=== PATIENT | female | born 1960 | race Caucasian/White ===

== ENCOUNTER 2023-02-05 15:16 | Inpatient (IN) ==
--- NOTE | 2023-02-05 15:31 | Emergency Department Note ---
Impression & Plan Pneumonia, Acute alteration in mental status, Hypoxia, Influenza, Hypomagnesemia, Acute hyponatremia ED Provider Note NAME: GURINDER GARCIA AGE: 62 SEX: F : 1960 ARRIVES VIA: Ambulance INFORMANT: Patient, EMS ED PROVIDER(S): Dami Llaons DO CHIEF COMPLAINT: Abdominal pain HPI: The patient is a 62-year-old female who presented to the emergency department from the [facility] for an evaluation of multiple complaints. Reportedly the patient has been having abdominal pain for the last 2 to 3 days. We did receive a phone call from the [facility] where the provider at that facility alerted us that they were sending the patient. The patient is not able to give much history. She appears agitated and confused. The patient is asking for "R[place]". When directed she does admit to having right lower quadrant pain. She denies having any black or tarry bowel movements. She denies having any chest pain or difficulty breathing. She was noted to have hypoxia by the nursing staff upon arrival to the emergency department. The patient was seen in our facility recently because of a fall. ROS: See above HPI for pertinent positives & negatives. A total of 10 systems reviewed and were otherwise negative. PAST MEDICAL HISTORY: See Below PAST SURGICAL HISTORY: See Below FAMILY HISTORY: See Below SOCIAL HISTORY: See Below HOME MEDICATIONS: See Below ALLERGIES: See Below VITALS: See Below PHYSICAL EXAMINATION: GENERAL: The patient is awake and alert. She does not appear to be uncomfortable. She follows commands intermittently and seems somewhat confused. EYES: The conjunctivae are clear. The pupils are round and reactive. EARS, NOSE, MOUTH AND THROAT: The nose is without any evidence of any deformity. NECK: The neck is nontender and supple. RESPIRATORY: Diminished breath sounds are noted throughout. There were rales at the right base. CARDIOVASCULAR: Regular rate and rhythm noted there no murmurs rubs or gallops normal S1 normal S2. GASTROINTESTINAL: The abdomen is soft and nondistended. There is right lower quadrant tenderness palpation but no guarding rigidity. MUSCULOSKELETAL/EXTREMITIES: There is no evidence of gross deformity full range of motion is noted in the hips and shoulders. SKIN: Skin is pale. Skin is cool and dry. There is no edema. NEUROLOGIC: Patient is awake alert and oriented to person and but not place or time. Strength was symmetric but diminished bilaterally. MEDICAL DECISION MAKING: The patient is a 62-year-old female who presented to the emergency department for an evaluation of altered mental status. The patient was sent from the [facility] where she is currently an inpatient for mental health treatment. The patient started having abdominal pain through the course of the day. Review of her records shows that she was here recently after a fall as well. The patient had abnormal lung sounds. She was found have signs of pneumonia on chest x-ray. She was treated empirically with IV antibiotics and given IV fluids. Given her altered mental status she was treated as sepsis. I discussed patient's laboratory and radiographic studies with her. I [facility] They have agreed to evaluate the patient in the emergency department for further management and disposition. Triage Nursing notes reviewed. Prior medical records reviewed Vital Signs: reviewed and remarkable for hypoxia and tachycardia. Differential diagnosis: Infection, hypoglycemia, electrolyte abnormalities, overdose, toxicologic, cardiac sources, intracerebral event, neurologic, trauma, as well as other pathologies. ER treatment provided: See below Diagnostics interpreted by me: ECG: EKG was obtained in the emergency department. My interpretation is normal sinus rhythm at 89 bpm. There is no ectopy. There is no acute ST segment abnormalities noted. No previous tracing was available. Cardiac Monitoring: An order was placed for continuous cardiac monitoring. The monitor shows a rate of 93 bpm with sinus rhythm. Laboratory studies: As stated above and show below. Imaging studies: See below. Radiographic imaging was reviewed by myself Consultation(s): I discussed this case with Zelda who is [facility] for [facility]. ED COURSE: Procedures: none Critical Care: I have personally spent greater than 45 minutes of critical care time in the direct management of this patient. This includes bedside care, interpretation of diagnostic studies, and testing, discussion with consultants, patient, and family members, and other required patient management activities. This 45 minutes is in excess of all separately billable procedures. Past Med/Surg History Medical History (Updated 02/05/23 @ 20:58 by Dami Llanos DO) COPD (chronic obstructive pulmonary disease) TIA (transient ischemic attack) SONI (obstructive sleep apnea) CAD (coronary artery disease) Hx of insulin dependent diabetes mellitus Borderline personality disorder Bipolar disorder Chronic GERD Hypertension Hypothyroid CVA (cerebral vascular accident) High cholesterol Social History Smoking Status: Unknown if ever smoked Preferred Language: Turkish Feels Safe at Home: No Allergies Allergies Allergy/AdvReac Type Severity Reaction Status Date / Time albuterol Allergy Unknown Unknown Verified 02/05/23 17:02 Corticosteroids Allergy Unknown Unknown Verified 02/05/23 17:02 (Glucocorticoids) escitalopram Allergy Unknown Unknown Verified 02/05/23 17:02 ketorolac Allergy Unknown Unknown Verified 02/05/23 17:02 mushroom Allergy Unknown Unknown Verified 02/05/23 17:02 NSAIDS (Non-Steroidal Allergy Unknown Unknown Verified 02/05/23 17:02 Anti-Inflamma prednisolone Allergy Unknown Unknown Verified 02/05/23 17:02 codeine AdvReac Unknown Nausea Verified 02/05/23 17:02 Fish Containing Products AdvReac Unknown edema Verified 02/05/23 17:02 prednisone AdvReac Unknown Unknown Verified 02/05/23 17:02 Home Meds Home Medications Medication Instructions Recorded Confirmed amlodipine 10 mg tablet 10 mg PO DAILY 02/05/23 02/05/23 atorvastatin 40 mg tablet 40 mg PO HS 02/05/23 02/05/23 clopidogrel 75 mg tablet 75 mg PO DAILY 02/05/23 02/05/23 diazepam 2 mg tablet 2 mg PO BID PRN bipolar 02/05/23 02/05/23 duloxetine 30 mg capsule,delayed 30 mg PO DAILY 02/05/23 02/05/23 release insulin aspart U-100 100 unit/mL 18 unit subcut AC 02/05/23 02/05/23 subcutaneous cartridge (Novolog PenFill U-100 Insulin aspart) insulin aspart U-100 100 unit/mL 1 sliding scale dose subcut 02/05/23 02/05/23 subcutaneous solution (Novolog USEASDIRECTD U-100 Insulin aspart) insulin detemir U-100 100 unit/mL 25 unit subcut DAILY 02/05/23 02/05/23 subcutaneous solution labetalol 100 mg tablet 100 mg PO BID 02/05/23 02/05/23 levothyroxine 100 mcg tablet 100 mcg PO DAILY 02/05/23 02/05/23 levothyroxine 25 mcg tablet 25 mcg PO DAILY 02/05/23 02/05/23 lisinopril 10 mg tablet 10 mg PO DAILY 02/05/23 02/05/23 metformin 500 mg tablet 500 mg PO BID 02/05/23 02/05/23 nitrofurantoin macrocrystal 100 mg 100 mg PO BID 02/05/23 02/05/23 capsule pantoprazole 40 mg tablet,delayed 40 mg PO DAILY 02/05/23 02/05/23 release quetiapine 25 mg tablet 25 mg PO BID 02/05/23 02/05/23 trazodone 100 mg tablet 100 mg PO HS PRN Insomnia 02/05/23 02/05/23 trazodone 50 mg tablet 25 mg PO HS PRN Insomnia 02/05/23 02/05/23 Results & Data (ED) Vital Signs Vital Signs - 24 hr 02/05/23 15:19 02/05/23 15:19 02/05/23 15:20 Temperature 36.9 C Temperature Source Oral Pulse Rate 91 H 89 Pulse Rate [Right Finger] Pulse Rate from SpO2 Sensor Pulse Rhythm Regular Pulse Strength Normal Respiratory Rate 20 20 Respiratory Effort / Characteristics Non-Labored Spontaneous Respiratory Depth Normal Respiratory Pattern Regular Blood Pressure 113/72 Blood Pressure [Right Arm] Blood Pressure Mean 85 Blood Pressure Mean [Right Arm] Blood Pressure Position [Right Arm] Pulse Oximetry 86 L 86 L 94 Oxygen Delivery Method Room Air Room Air Nasal Cannula Oxygen Flow Rate 2 Sepsis Recent Fever Within 48 Hours No Sepsis New/Unexplained Change in Mental Status Yes Sepsis Action Taken by Nursing No Action Required 02/05/23 15:38 02/05/23 15:38 02/05/23 16:00 Temperature Temperature Source Pulse Rate 92 H 92 H 92 H Pulse Rate [Right Finger] Pulse Rate from SpO2 Sensor Pulse Rhythm Pulse Strength Respiratory Rate 20 19 Respiratory Effort / Characteristics Respiratory Depth Respiratory Pattern Blood Pressure Blood Pressure [Right Arm] Blood Pressure Mean Blood Pressure Mean [Right Arm] Blood Pressure Position [Right Arm] Pulse Oximetry Oxygen Delivery Method Oxygen Flow Rate Sepsis Recent Fever Within 48 Hours Sepsis New/Unexplained Change in Mental Status Sepsis Action Taken by Nursing 02/05/23 16:30 02/05/23 16:47 02/05/23 16:47 Temperature Temperature Source Pulse Rate 88 90 Pulse Rate [Right Finger] Pulse Rate from SpO2 Sensor 88 90 Pulse Rhythm Pulse Strength Respiratory Rate 22 22 Respiratory Effort / Characteristics Respiratory Depth Respiratory Pattern Blood Pressure 142/108 H Blood Pressure [Right Arm] Blood Pressure Mean 121 Blood Pressure Mean [Right Arm] Blood Pressure Position [Right Arm] Pulse Oximetry 91 91 Oxygen Delivery Method Oxygen Flow Rate Sepsis Recent Fever Within 48 Hours Sepsis New/Unexplained Change in Mental Status Sepsis Action Taken by Nursing 02/05/23 16:50 02/05/23 17:19 02/05/23 17:19 Temperature Temperature Source Pulse Rate 90 89 Pulse Rate [Right Finger] Pulse Rate from SpO2 Sensor 91 H Pulse Rhythm Pulse Strength Respiratory Rate 21 23 Respiratory Effort / Characteristics Respiratory Depth Respiratory Pattern Blood Pressure 146/81 H Blood Pressure [Right Arm] Blood Pressure Mean 102 Blood Pressure Mean [Right Arm] Blood Pressure Position [Right Arm] Pulse Oximetry 100 Oxygen Delivery Method Oxygen Flow Rate Sepsis Recent Fever Within 48 Hours Sepsis New/Unexplained Change in Mental Status Sepsis Action Taken by Nursing 02/05/23 17:20 02/05/23 17:30 02/05/23 17:31 Temperature Temperature Source Pulse Rate 86 88 Pulse Rate [Right Finger] Pulse Rate from SpO2 Sensor Pulse Rhythm Pulse Strength Respiratory Rate 31 H 29 H Respiratory Effort / Characteristics Respiratory Depth Respiratory Pattern Blood Pressure 152/92 H Blood Pressure [Right Arm] Blood Pressure Mean 119 Blood Pressure Mean [Right Arm] Blood Pressure Position [Right Arm] Pulse Oximetry Oxygen Delivery Method Oxygen Flow Rate Sepsis Recent Fever Within 48 Hours Sepsis New/Unexplained Change in Mental Status Sepsis Action Taken by Nursing 02/05/23 17:31 02/05/23 17:40 02/05/23 17:41 Temperature Temperature Source Pulse Rate 88 86 Pulse Rate [Right Finger] 88 Pulse Rate from SpO2 Sensor Pulse Rhythm Pulse Strength Respiratory Rate 31 H 29 H 20 Respiratory Effort / Characteristics Non-Labored Respiratory Depth Normal Respiratory Pattern Blood Pressure Blood Pressure [Right Arm] 152/92 H Blood Pressure Mean Blood Pressure Mean [Right Arm] 112 Blood Pressure Position [Right Arm] Pulse Oximetry 94 Oxygen Delivery Method Nasal Cannula Oxygen Flow Rate 2 Sepsis Recent Fever Within 48 Hours Sepsis New/Unexplained Change in Mental Status Sepsis Action Taken by Nursing 02/05/23 17:50 02/05/23 18:00 02/05/23 18:00 Temperature Temperature Source Pulse Rate 87 87 Pulse Rate [Right Finger] Pulse Rate from SpO2 Sensor 87 Pulse Rhythm Pulse Strength Respiratory Rate 19 27 H Respiratory Effort / Characteristics Respiratory Depth Respiratory Pattern Blood Pressure 149/93 H Blood Pressure [Right Arm] Blood Pressure Mean 123 Blood Pressure Mean [Right Arm] Blood Pressure Position [Right Arm] Pulse Oximetry Oxygen Delivery Method Oxygen Flow Rate Sepsis Recent Fever Within 48 Hours Sepsis New/Unexplained Change in Mental Status Sepsis Action Taken by Nursing 02/05/23 18:10 02/05/23 18:18 02/05/23 18:20 Temperature Temperature Source Pulse Rate 86 86 Pulse Rate [Right Finger] 86 Pulse Rate from SpO2 Sensor 86 86 Pulse Rhythm Pulse Strength Respiratory Rate 33 H 20 16 Respiratory Effort / Characteristics Non-Labored Respiratory Depth Normal Respiratory Pattern Blood Pressure Blood Pressure [Right Arm] 149/93 H Blood Pressure Mean Blood Pressure Mean [Right Arm] 111 Blood Pressure Position [Right Arm] Pulse Oximetry 91 94 Oxygen Delivery Method Nasal Cannula Oxygen Flow Rate 2 Sepsis Recent Fever Within 48 Hours Sepsis New/Unexplained Change in Mental Status Sepsis Action Taken by Nursing 02/05/23 18:30 02/05/23 18:30 02/05/23 18:40 Temperature Temperature Source Pulse Rate 85 86 Pulse Rate [Right Finger] Pulse Rate from SpO2 Sensor 85 85 Pulse Rhythm Pulse Strength Respiratory Rate 29 H 33 H Respiratory Effort / Characteristics Respiratory Depth Respiratory Pattern Blood Pressure 149/83 H Blood Pressure [Right Arm] Blood Pressure Mean 96 Blood Pressure Mean [Right Arm] Blood Pressure Position [Right Arm] Pulse Oximetry 93 Oxygen Delivery Method Oxygen Flow Rate Sepsis Recent Fever Within 48 Hours Sepsis New/Unexplained Change in Mental Status Sepsis Action Taken by Nursing 02/05/23 18:50 02/05/23 19:00 02/05/23 19:00 Temperature Temperature Source Pulse Rate 85 85 Pulse Rate [Right Finger] Pulse Rate from SpO2 Sensor 85 90 Pulse Rhythm Pulse Strength Respiratory Rate 23 37 H Respiratory Effort / Characteristics Respiratory Depth Respiratory Pattern Blood Pressure 134/91 Blood Pressure [Right Arm] Blood Pressure Mean 100 Blood Pressure Mean [Right Arm] Blood Pressure Position [Right Arm] Pulse Oximetry 90 93 Oxygen Delivery Method Oxygen Flow Rate Sepsis Recent Fever Within 48 Hours Sepsis New/Unexplained Change in Mental Status Sepsis Action Taken by Nursing 02/05/23 19:10 02/05/23 19:15 02/05/23 19:20 Temperature Temperature Source Pulse Rate 83 82 Pulse Rate [Right Finger] 85 Pulse Rate from SpO2 Sensor 83 86 Pulse Rhythm Pulse Strength Respiratory Rate 32 H 18 27 H Respiratory Effort / Characteristics Non-Labored Spontaneous Respiratory Depth Normal Respiratory Pattern Regular Blood Pressure Blood Pressure [Right Arm] 134/91 Blood Pressure Mean Blood Pressure Mean [Right Arm] 105 Blood Pressure Position [Right Arm] Lying Pulse Oximetry 90 94 90 Oxygen Delivery Method Nasal Cannula Oxygen Flow Rate 2 Sepsis Recent Fever Within 48 Hours Sepsis New/Unexplained Change in Mental Status Sepsis Action Taken by Nursing 02/05/23 19:30 02/05/23 19:31 02/05/23 19:31 Temperature Temperature Source Pulse Rate 87 88 Pulse Rate [Right Finger] Pulse Rate from SpO2 Sensor 84 88 Pulse Rhythm Pulse Strength Respiratory Rate 27 H 34 H Respiratory Effort / Characteristics Respiratory Depth Respiratory Pattern Blood Pressure 130/107 H Blood Pressure [Right Arm] Blood Pressure Mean 119 Blood Pressure Mean [Right Arm] Blood Pressure Position [Right Arm] Pulse Oximetry 91 Oxygen Delivery Method Nasal Cannula Oxygen Flow Rate 3 Sepsis Recent Fever Within 48 Hours Sepsis New/Unexplained Change in Mental Status Sepsis Action Taken by Nursing 02/05/23 19:40 02/05/23 19:47 02/05/23 19:50 Temperature Temperature Source Pulse Rate 88 89 87 Pulse Rate [Right Finger] Pulse Rate from SpO2 Sensor 87 88 Pulse Rhythm Pulse Strength Respiratory Rate 29 H 24 Respiratory Effort / Characteristics Respiratory Depth Respiratory Pattern Blood Pressure Blood Pressure [Right Arm] Blood Pressure Mean Blood Pressure Mean [Right Arm] Blood Pressure Position [Right Arm] Pulse Oximetry Oxygen Delivery Method Oxygen Flow Rate Sepsis Recent Fever Within 48 Hours Sepsis New/Unexplained Change in Mental Status Sepsis Action Taken by Nursing 02/05/23 20:00 02/05/23 20:10 02/05/23 20:14 Temperature Temperature Source Pulse Rate 90 91 H Pulse Rate [Right Finger] Pulse Rate from SpO2 Sensor 91 H 91 H Pulse Rhythm Pulse Strength Respiratory Rate 23 25 H Respiratory Effort / Characteristics Respiratory Depth Respiratory Pattern Blood Pressure 107/61 Blood Pressure [Right Arm] Blood Pressure Mean 74 Blood Pressure Mean [Right Arm] Blood Pressure Position [Right Arm] Pulse Oximetry Oxygen Delivery Method Oxygen Flow Rate Sepsis Recent Fever Within 48 Hours Sepsis New/Unexplained Change in Mental Status Sepsis Action Taken by Nursing 02/05/23 20:14 02/05/23 20:20 02/05/23 20:30 Temperature Temperature Source Pulse Rate 91 H 92 H 93 H Pulse Rate [Right Finger] Pulse Rate from SpO2 Sensor 92 H 92 H Pulse Rhythm Pulse Strength Respiratory Rate 31 H 34 H 25 H Respiratory Effort / Characteristics Respiratory Depth Respiratory Pattern Blood Pressure Blood Pressure [Right Arm] Blood Pressure Mean Blood Pressure Mean [Right Arm] Blood Pressure Position [Right Arm] Pulse Oximetry 93 Oxygen Delivery Method Oxygen Flow Rate Sepsis Recent Fever Within 48 Hours Sepsis New/Unexplained Change in Mental Status Sepsis Action Taken by Nursing 02/05/23 20:40 Temperature Temperature Source Pulse Rate 93 H Pulse Rate [Right Finger] Pulse Rate from SpO2 Sensor 93 H Pulse Rhythm Pulse Strength Respiratory Rate 29 H Respiratory Effort / Characteristics Respiratory Depth Respiratory Pattern Blood Pressure Blood Pressure [Right Arm] Blood Pressure Mean Blood Pressure Mean [Right Arm] Blood Pressure Position [Right Arm] Pulse Oximetry 94 Oxygen Delivery Method Nasal Cannula Oxygen Flow Rate 4 Sepsis Recent Fever Within 48 Hours Sepsis New/Unexplained Change in Mental Status Sepsis Action Taken by [facility] Medications Current Medication List: was personally reviewed by me Laboratory Data Attestation: I reviewed the patient's lab results. 02/05/23 15:56 02/05/23 15:56 Lab Results 02/05/23 02/05/23 02/05/23 Range/Units 15:56 15:58 16:51 WBC 19.28 H (4.8-10.8) K/ul RBC 5.20 (4.20-5.40) M/uL Hgb 12.9 (12.0-16.0) g/dl Hct 39.2 (37.0-47.0) % MCV 75.4 L (80.0-100.0) fL MCH 24.8 L (25.0-34.0) pg MCHC 32.9 (32.0-36.0) g/dL RDW Std Deviation 32.6 L (36.4-46.3) fL RDW Coeff of Roxie 11.9 (11.5-14.5) % Plt Count 331 (130-400) K/uL MPV 9.3 L (9.4-12.4) fL Immature Gran % (Auto) 3.6 % Neut % (Auto) 89.0 % Lymph % (Auto) 2.8 % Branch % (Auto) 3.4 % Eos % (Auto) 0.5 % Baso % (Auto) 0.7 % Neut # (Auto) 17.14 H (1.40-6.50) K/uL Lymph # (Auto) 0.54 L (1.20-3.40) K/uL Branch # (Auto) 0.66 H (0.11-0.59) K/uL Eos # (Auto) 0.10 (0.00-0.50) K/uL Baso # (Auto) 0.14 (0.00-0.20) K/uL Immature Gran # (Auto) 0.70 H (0.01-0.20) K/uL PT 10.6 (9.0-12.0) Seconds INR 1.0 (0.9-1.1) APTT 38 H (21-31) Seconds PTT Ratio 1.3 VBG pH 7.36 (7.36-7.41) VBG pCO2 42 (38-50) mmHg VBG pO2 23 mmHg VBG HCO3 24 mmol/L VBG O2 Saturation < 60.0 % VBG Base Excess -1.8 mEq/L Methemoglobin < 0.7 (0.0-1.5) % Sodium 128 L (136-145) mmol/L Potassium 3.7 (3.5-5.1) mmol/L Chloride 93 L (98-107) mmol/L Carbon Dioxide 22 (21-32) mmol/L Anion Gap 13 H (3-11) BUN 16 (6-23) mg/dl Creatinine 0.98 (0.6-1.2) mg/dl Est Cr Clr Drug Dosing 52.7 ml/min Est GFR ( Amer) 72.7 ml/min Est GFR (Non-Af Amer) 62.7 ml/min BUN/Creatinine Ratio 16.3 (10-20) Glucose 237 H (70-99(Fasting)) mg/dl Osmolality 287 (280-300) mOsm/kg Lactate 4.5 H* (0.4-2.0) mmol/L Calcium 9.5 (8.6-10.3) mg/dl Magnesium 1.3 L (1.7-2.4) mg/dl Total Bilirubin 0.5 (0.2-1.0) mg/dl Direct Bilirubin 0.1 (0-0.2) mg/dl AST 16 (13-39) U/L ALT 6 L (7-52) U/L Alkaline Phosphatase 71 (34-104) U/L Ammonia 20.0 (18-72) umol/L Troponin I High Sens 11.0 (0-14) pg/ml Total Protein 7.9 (6.0-8.3) gm/dl Albumin 3.9 (3.4-5.0) gm/dl Procalcitonin 21.53 H (0-0.5) ng/ml Urine Color Urine Appearance (Clear) Urine pH (4.5-7.5) Ur Specific [place] (1.000-1.030) Urine Protein (Negative) Urine Glucose (UA) (Negative) Urine Ketones (Negative) Urine Blood (Negative) Urine Nitrite (Negative) Urine Bilirubin (Negative) Urine Urobilinogen (Negative) Ur Leukocyte Esterase (Negative) Urine WBC (Auto) (0-5) /hpf Urine RBC (Auto) (0-4) /hpf U Hyaline Cast (Auto) (0-5) /lpf U Epithel Cells (Auto) (0-5) /lpf Urine Bacteria (Auto) (Negative) Urine Osmolality 507 (500-800) mOsm/kg Ur Random Sodium 29 mmol/L Adenovirus (PCR) Not Detected (NotDetected) B. pertussis DNA (PCR) Not Detected (NotDetected) B.parapertussis DNA PCR Not Detected (NotDetected) C. pneumoniae DNA (PCR) Not Detected (NotDetected) Coronavirus OC43 (PCR) Not Detected (NotDetected) Coronavirus HKU1 (PCR) Not Detected (NotDetected) Coronavirus 229E (PCR) Not Detected (NotDetected) SARS-CoV-2 (PCR) Not Detected (NotDetected) Coronavirus NL63 (PCR) Not Detected (NotDetected) Human Metapneumovir PCR Not Detected (NotDetected) Influenza A (H3) PCR DETECTED A* (NotDetected) Influenza Type B (PCR) Not Detected (NotDetected) M. pneumoniae (PCR) Not Detected (NotDetected) Parainfluenza 1 (PCR) Not Detected (NotDetected) Parainfluenza 2 (PCR) Not Detected (NotDetected) Parainfluenza 3 (PCR) Not Detected (NotDetected) Parainfluenza 4 (PCR) Not Detected (NotDetected) RSV (PCR) Not Detected (NotDetected) Entero/Rhino (PCR) Not Detected (NotDetected) 02/05/23 02/05/23 Range/Units 18:26 Unknown WBC (4.8-10.8) K/ul RBC (4.20-5.40) M/uL Hgb (12.0-16.0) g/dl Hct (37.0-47.0) % MCV (80.0-100.0) fL MCH (25.0-34.0) pg MCHC (32.0-36.0) g/dL RDW Std Deviation (36.4-46.3) fL RDW Coeff of Roxie (11.5-14.5) % Plt Count (130-400) K/uL MPV (9.4-12.4) fL Immature Gran % (Auto) % Neut % (Auto) % Lymph % (Auto) % Branch % (Auto) % Eos % (Auto) % Baso % (Auto) % Neut # (Auto) (1.40-6.50) K/uL Lymph # (Auto) (1.20-3.40) K/uL Branch # (Auto) (0.11-0.59) K/uL Eos # (Auto) (0.00-0.50) K/uL Baso # (Auto) (0.00-0.20) K/uL Immature Gran # (Auto) (0.01-0.20) K/uL PT (9.0-12.0) Seconds INR (0.9-1.1) APTT (21-31) Seconds PTT Ratio VBG pH (7.36-7.41) VBG pCO2 (38-50) mmHg VBG pO2 mmHg VBG HCO3 mmol/L VBG O2 Saturation % VBG Base Excess mEq/L Methemoglobin (0.0-1.5) % Sodium (136-145) mmol/L Potassium (3.5-5.1) mmol/L Chloride (98-107) mmol/L Carbon Dioxide (21-32) mmol/L Anion Gap (3-11) BUN (6-23) mg/dl Creatinine (0.6-1.2) mg/dl Est Cr Clr Drug Dosing ml/min Est GFR ( Amer) ml/min Est GFR (Non-Af Amer) ml/min BUN/Creatinine Ratio (10-20) Glucose (70-99(Fasting)) mg/dl Osmolality (280-300) mOsm/kg Lactate 0.6 (0.4-2.0) mmol/L Calcium (8.6-10.3) mg/dl Magnesium (1.7-2.4) mg/dl Total Bilirubin (0.2-1.0) mg/dl Direct Bilirubin (0-0.2) mg/dl AST (13-39) U/L ALT (7-52) U/L Alkaline Phosphatase (34-104) U/L Ammonia (18-72) umol/L Troponin I High Sens (0-14) pg/ml Total Protein (6.0-8.3) gm/dl Albumin (3.4-5.0) gm/dl Procalcitonin (0-0.5) ng/ml Urine Color Yellow Urine Appearance Cloudy A (Clear) Urine pH 5.0 (4.5-7.5) Ur Specific [place] 1.023 (1.000-1.030) Urine Protein 1+ H (Negative) Urine Glucose (UA) 3+ H (Negative) Urine Ketones 2+ H (Negative) Urine Blood Negative (Negative) Urine Nitrite Negative (Negative) Urine Bilirubin Negative (Negative) Urine Urobilinogen Negative (Negative) Ur Leukocyte Esterase Trace H (Negative) Urine WBC (Auto) 10-30 H (0-5) /hpf Urine RBC (Auto) 0-4 (0-4) /hpf U Hyaline Cast (Auto) 1-5 (0-5) /lpf U Epithel Cells (Auto) >30 H (0-5) /lpf Urine Bacteria (Auto) Negative (Negative) Urine Osmolality (500-800) mOsm/kg Ur Random Sodium mmol/L Adenovirus (PCR) (NotDetected) B. pertussis DNA (PCR) (NotDetected) B.parapertussis DNA PCR (NotDetected) C. pneumoniae DNA (PCR) (NotDetected) Coronavirus OC43 (PCR) (NotDetected) Coronavirus HKU1 (PCR) (NotDetected) Coronavirus 229E (PCR) (NotDetected) SARS-CoV-2 (PCR) (NotDetected) Coronavirus NL63 (PCR) (NotDetected) Human Metapneumovir PCR (NotDetected) Influenza A (H3) PCR (NotDetected) Influenza Type B (PCR) (NotDetected) M. pneumoniae (PCR) (NotDetected) Parainfluenza 1 (PCR) (NotDetected) Parainfluenza 2 (PCR) (NotDetected) Parainfluenza 3 (PCR) (NotDetected) Parainfluenza 4 (PCR) (NotDetected) RSV (PCR) (NotDetected) Entero/Rhino (PCR) (NotDetected) Administered Medications Discontinued Medications Magnesium Sulfate/Dextrose (Magnesium Sulfate / D5w) 1 gm in 100 mls @ 100 mls/hr IV Q1H BARBI Stop: 02/05/23 18:47 Last Infusion: 02/05/23 19:17 Dose: Infused Documented By: Admin: 02/05/23 18:17 Dose: 100 mls/hr Documented By: Infusion: 02/05/23 18:16 Dose: Infused Documented By: Admin: 02/05/23 17:21 Dose: 100 mls/hr Documented By: NRB Sodium Chloride (Nss) 1,000 mls @ 999 mls/hr IV .Q1H1M ONE Stop: 02/05/23 17:48 Last Infusion: 02/05/23 20:30 Dose: Infused Documented By: Admin: 02/05/23 17:21 Dose: 999 mls/hr Documented By: DARLING Cefepime HCl (Maxipime) 20 mls @ 5 mls/min IV NOW STA Stop: 02/05/23 17:12 Last Admin: 02/05/23 17:19 Dose: 5 mls/min Documented By: DARLING Vancomycin HCl 1,750 mg/ (Sodium Chloride) 535 mls @ 200 mls/hr IV NOW STA Stop: 02/05/23 19:50 Last Infusion: 02/05/23 20:31 Dose: Infused Documented By: Admin: 02/05/23 17:47 Dose: 200 mls/hr Documented By: NRB Sodium Chloride (Nss) 1,000 mls @ 999 mls/hr IV .Q1H1M ONE Stop: 02/05/23 18:27 Last Infusion: 02/05/23 20:31 Dose: Infused Documented By: Admin: 02/05/23 18:04 Dose: 999 mls/hr Documented By: DARLING Oseltamivir Phosphate (Oseltamivir Phosphate 75 Mg Cap) 75 mg PO NOW STA; Protocol Stop: 02/05/23 17:28 Last Admin: 02/05/23 17:39 Dose: 75 mg Documented By: NRB Imaging Data Attestation: I personally reviewed and interpreted this imaging study as follows: My Impression: CT of the brain was obtained in the emergency department. My interpretation is no intracranial hemorrhage or mass effect, final report below. CT of the abdomen and pelvis was obtained in the emergency department. My interpretation is no free air or signs of bowel obstruction, final report below. CT of the chest was obtained in the emergency department. My interpretation is bilateral infiltrates, no free air, final report below. Radiologist's Impression: Abdomen/Pelvis CT 02/05/23 15:27 CT abd pelvis IV con only CLINICAL HISTORY: RLQ Pain TECHNIQUE: Helical axial images of the abdomen and pelvis were obtained and displayed. Automated dose lowering techniques and/or adjustment according to patient size were utilized for this exam. This exam was performed with intravenous contrast. CT DOSE: 1466.06 mGy.cm COMPARISON: None available at the time of this dictation. FINDINGS: Lower chest: For findings above the diaphragm, please see CT chest performed same day. Liver: Unremarkable. No focal lesions are seen. Gallbladder and biliary tree: No calcified gallstones. Normal caliber wall. No intra- or extrahepatic biliary ductal dilation. Pancreas: Unremarkable, no focal lesions. Spleen: Unremarkable. Adrenals: Unremarkable. Kidneys and ureters: Unremarkable. Bladder: Elliott catheter is seen. Reproductive organs: Unremarkable. Bowel: Diverticulosis is seen without evidence of diverticulitis. The appendix is not definitely seen however there are no secondary signs of appendicitis. Lymph nodes Retroperitoneal: Unremarkable. Pelvic: Unremarkable. Mesenteric: Unremarkable. Peritoneum: Normal. Vessels: Atherosclerotic calcifications are seen. Abdominal wall: Unremarkable. Bones: Degenerative changes are seen in the lumbar spine with postsurgical changes of decompression and fusion. IMPRESSION: No acute abnormalities are seen. ACT 112: Negative or not required by law. Electronically signed by: Watson Long M.D. 02/05/2023 5:54 PM Chest CTA 02/05/23 15:27 CT angio chest PE protocol CLINICAL HISTORY: PE TECHNIQUE: Multidetector row helical CT of the chest was performed with angiographic protocol. Coronal and sagittal reformations were obtained. Coronal and sagittal MIPS were obtained from the axial data set and were submitted for review. Automated dose lowering techniques and/or adjustment according to patient size were utilized for this exam. CT DOSE: 11.76 mGy.cm Comparison: None available at the time of this dictation. FINDINGS: Lungs and pleura: Multifocal consolidative opacities are seen. Bronchial wall thickening and mucous plugging are seen. Heart and pericardium: Heart size is normal. No pericardial effusion. Vessels: No evidence of pulmonary embolism. Mediastinum and glenis: Unremarkable. Chest wall and lower neck: Unremarkable. Abdomen: Unremarkable. Bones: Degenerative changes in the thoracic spine. IMPRESSION: No pulmonary embolus. Multifocal airspace opacities are seen compatible with pneumonia with or without an element of aspiration. Infectious/inflammatory airways disease is seen. ACT 112: Negative or not required by law. Electronically signed by: Watson Long M.D. 02/05/2023 5:[address] 02/05/23 15:27 CT head/brain wo con CLINICAL HISTORY: ams Technique: Contiguous axial CT images of the head were acquired from the base of the skull to the vertex without intravenous contrast administration. Images were viewed in brain, subdural and bone windows. Automated dose lowering techniques and/or adjustment according to patient size were utilized for this exam. Comparison: Comparison is made to CT head 02/02/2023 Findings: The ventricles, basal cisterns, and cerebral sulci are normal. There is no acute intracranial hemorrhage or evidence of acute territorial infarction. Neither mass effect, shift of the midline structures, nor abnormal extra-axial fluid collections are shown. Punctate encephalomalacia in the right basal ganglia is unchanged from prior exam. Imaged portions of the paranasal sinuses and mastoid air cells are clear. The orbits appear normal. There are no acute fractures of the calvaria or scalp swelling. Impression: No acute intracranial hemorrhage, no evidence of acute territorial infarction or other acute intracranial disease process. ACT 112: Negative or not required by law. Electronically signed by: Watson Long M.D. 02/05/2023 5:37 PM Chest X-Ray 02/05/23 15:28 XR chest 1V portable CLINICAL HISTORY: Sepsis TECHNIQUE: Single frontal radiograph of the chest was obtained. Comparison: None available at the time of this dictation. FINDINGS: An implanted pacemaker is seen. Calcified aortic knob is seen. Airspace opacities are seen in the right lower lung and left midlung. No evidence of pleural effusion or pneumothorax. IMPRESSION: Multifocal airspace opacities may represent atelectasis, pneumonia, and/or aspiration. ACT 112: Negative or not required by law. Electronically signed by: Watson Long M.D. 02/05/2023 5:08 PM Discharge Plan Visit Data Chief Complaint: Abdominal Pain Stated Complaint: ABDOMINAL PAIN, FROM [facility] Provider: Dami Llanos Discharge Problem: Pneumonia, Acute alteration in mental status, Hypoxia, Influenza, Hypomagnesemia, Acute hyponatremia Patient Disposition: Being Evaluated by Hospitalist Forms Stand Alone Forms: My [facility] Prescriptions Prescriptions: No Action atorvastatin 40 mg Tablet 40 mg PO HS clopidogrel 75 mg Tablet 75 mg PO DAILY diazepam 2 mg Tablet 2 mg PO BID PRN (Reason: bipolar) duloxetine 30 mg Capsule,Delayed Release(Dr/Ec) 30 mg PO DAILY insulin aspart U-100 [Novolog U-100 Insulin aspart] 100 unit/mL Solution 1 sliding scale dose SUBCUT USEASDIRECTD insulin detemir U-100 100 unit/mL Solution 25 unit SUBCUT DAILY levothyroxine 100 mcg Tablet 100 mcg PO DAILY levothyroxine 25 mcg Tablet 25 mcg PO DAILY lisinopril 10 mg Tablet 10 mg PO DAILY metformin 500 mg Tablet 500 mg PO BID nitrofurantoin macrocrystal 100 mg Capsule 100 mg PO BID Rx Instructions: must administer with a meal/food insulin aspart U-100 [Novolog PenFill U-100 Insulin] 100 unit/mL Cartridge 18 unit SUBCUT AC pantoprazole 40 mg Tablet,Delayed Release (Dr/Ec) 40 mg PO DAILY quetiapine 25 mg Tablet 25 mg PO BID trazodone 100 mg Tablet 100 mg PO HS PRN (Reason: Insomnia) trazodone 50 mg Tablet 25 mg PO HS PRN (Reason: Insomnia) amlodipine 10 mg tablet 10 mg PO DAILY labetalol 100 mg tablet 100 mg PO BID Referrals Referrals: Jocelin [facility] [Primary Care Provider] - Discharge Problem: Pneumonia Qualifiers: Pneumonia type: due to unspecified organism Laterality: bilateral Lung location: unspecified part of lung Qualified Code(s): J18.9 - Pneumonia, unspecified organism
--- NOTE | 2023-02-05 16:18 | Electrocardiogram Report ---
Test Reason : Blood Pressure : / mmHG Vent. Rate : 089 BPM Atrial Rate : 089 BPM P-R Int : 158 ms QRS Dur : 074 ms QT Int : 360 ms P-R-T Axes : 059 -39 040 degrees QTc Int : 438 ms Normal sinus rhythm Left axis deviation Abnormal ECG No previous ECGs available Confirmed by Edmar Santiago ([id number]) on 02/05/2023 4:17:48 PM Referred By: Confirmed By:Lewis Santiago
[2023-02-05 16:25] LABS: Base Excess VBG -1.8 mEq/L; HCO3 VBG 24 mmol/L; Oxygen Saturation VBG < 60.0 %; PCO2 VBG 42 mmHg (38-50); PO2 VBG 23 mmHg; pH VBG 7.36 (7.36-7.41)
[2023-02-05 16:26] LABS: Hematocrit (blood only) 39.2 % (37.0-47.0); Hemoglobin 12.9 g/dl (12.0-16.0); Mean Corpuscular Hemoglobin 24.8 pg (25.0-34.0); Mean Corpuscular Hgb Conc 32.9 g/dL (32.0-36.0); Mean Corpuscular Volume 75.4 fL (80.0-100.0); Mean Platelet Volume 9.3 fL (9.4-12.4); Platelet Count 331 K/uL (130-400); RDW Coefficient of Variation 11.9 % (11.5-14.5); RDW Standard Deviation 32.6 fL (36.4-46.3); White Blood Count 19.28 K/ul (4.8-10.8)
[2023-02-05 16:46] LABS: Albumin Level 3.9 gm/dl (3.4-5.0); BUN Creatinine Ratio 16.3 (10-20); Bilirubin Direct 0.1 mg/dl (0-0.2); Bilirubin,Total 0.5 mg/dl (0.2-1.0); Calcium 9.5 mg/dl (8.6-10.3); Creatinine Clr Calc Pharmacy 52.7 ml/min; Est GFR (African American) 72.7 ml/min; Est GFR (Non-African American) 62.7 ml/min; Magnesium 1.3 mg/dl (1.7-2.4); Potassium 3.7 mmol/L (3.5-5.1); Total Protein 7.9 gm/dl (6.0-8.3)
[2023-02-05] MEDS ORDERED: SODIUM CHLORIDE 0.9% 1,000 ML IV ONE ×2 (16:48→17:27)
[2023-02-05 17:01] LABS: Partial Thromboplastin Ratio 1.3; Partial Thromboplastin Time 38 Seconds (21-31); Prothrombin Time 10.6 Seconds (9.0-12.0)
[2023-02-05 17:07] LABS: Basophils # (auto) 0.14 K/uL (0.00-0.20); Basophils % (auto) 0.7 %; Eosinophils % (auto) 0.5 %; Immature Granulocytes % (auto) 3.6 %; Lymphocytes # (auto) 0.54 K/uL (1.20-3.40); Lymphocytes % (auto) 2.8 %; Monocytes # (auto) 0.66 K/uL (0.11-0.59); Monocytes % (auto) 3.4 %; Neutrophils # (auto) 17.14 K/uL (1.40-6.50)
[2023-02-05 17:09] LABS: Adenovirus PCR Not Detected (NotDetected); Bordetella parapertussis PCR Not Detected (NotDetected); Bordetella pertussis PCR Not Detected (NotDetected); Chlamydia pneumoniae PCR Not Detected (NotDetected); Coronavirus 229E PCR Not Detected (NotDetected); Coronavirus CoV-2 (COVID19)PCR Not Detected (NotDetected); Coronavirus HKU1 PCR Not Detected (NotDetected); Coronavirus NL63 PCR Not Detected (NotDetected); Coronavirus OC43PCR Not Detected (NotDetected); Human Metapneumovirus PCR Not Detected (NotDetected); Influenza B PCR Not Detected (NotDetected); Mycoplasma pneumoniae PCR Not Detected (NotDetected); Parainfluenza Virus 1 PCR Not Detected (NotDetected); Parainfluenza Virus 2 PCR Not Detected (NotDetected); Parainfluenza Virus 3 PCR Not Detected (NotDetected); Parainfluenza Virus 4 PCR Not Detected (NotDetected); Respiratory Syncytial VirusPCR Not Detected (NotDetected); Rhinovirus/Enterovirus PCR Not Detected (NotDetected)
[2023-02-05] MEDS ORDERED: CEFEPIME 20 ML IV STA (17:09)
[2023-02-05] MEDS ORDERED: VANCOMYCIN HCL 1,750 MG in SODIUM CHLORIDE 0.9% 500 ML IV STA (17:10)
--- NOTE | 2023-02-05 17:11 | XRay Report ---
XR chest 1V portable CLINICAL HISTORY: Sepsis TECHNIQUE: Single frontal radiograph of the chest was obtained. Comparison: None available at the time of this dictation. FINDINGS: An implanted pacemaker is seen. Calcified aortic knob is seen. Airspace opacities are seen in the rig ht lower lung and left midlung. No evidence of pleural effusion or pneumothorax. IMPRESSION: Multifocal airspace opacities may represent atelectasis, pneumonia, and/or aspiration. ACT 112: Negative or not required by law. Electronically signed by: Watson Long M.D. 02/05/2023 5:08 PM
[2023-02-05 17:14] LABS: Appearance Urine Cloudy (Clear); Bacteria Urine Automated Negative (Negative); Bilirubin Urine Negative (Negative); Blood Urine Negative (Negative); Color Urine Yellow; Epithelial Cell Urine Auto >30 /lpf (0-5); Glucose Urine UA 3+ (Negative); Ketones Urine 2+ (Negative); Leukocyte Esterase Urine Trace (Negative); Nitrite Urine Negative (Negative); Protein Urine 1+ (Negative); RBC Urine Automated 0-4 /hpf (0-4); Specific Gravity Urine 1.023 (1.000-1.030); Urobilinogen Urine Negative (Negative)
[2023-02-05] MEDS: MAGNESIUM SULFATE / D5W 1 GM/100 ML BAG IV SCH ×2 (17:21→18:17)
[2023-02-05 17:23] LABS: Influenza A (H3) PCR DETECTED (NotDetected)
[2023-02-05] MEDS ORDERED: OSELTAMIVIR PHOSPHATE 75 MG CAP PO STA (17:27)
--- NOTE | 2023-02-05 17:39 | CT Scan Report ---
CT head/brain wo con CLINICAL HISTORY: ams Technique: Contiguous axial CT images of the head were acquired from the base of the skull to the malcolm ulises without intravenous contrast administration. Images were viewed in brain, subdural and bone windo ws. Automated dose lowering techniques and/or adjustment according to patient size were utilized for this exam. Comparison: Comparison is made to CT head 02/02/2023 Findings: The ventricles, basal cisterns, and cerebral sulci are normal. There is no acute intracranial hemorrh age or evidence of acute territorial infarction. Neither mass effect, shift of the midline structures , nor abnormal extra-axial fluid collections are shown. Punctate encephalomalacia in the right basal ganglia is unchanged from prior exam. Imaged portions of the paranasal sinuses and mastoid air cells are clear. The orbits appear normal. There are no acute fractures of the calvaria or scalp swelling. Impression: No acute intracranial hemorrhage, no evidence of acute territorial infarction or other acute intracra nial disease process. ACT 112: Negative or not required by law. Electronically signed by: Watson Long M.D. 02/05/2023 5:37 PM
--- NOTE | 2023-02-05 17:44 | CT Scan Report ---
CT angio chest PE protocol CLINICAL HISTORY: PE TECHNIQUE: Multidetector row helical CT of the chest was performed with angiographic protocol. Felix l and sagittal reformations were obtained. Coronal and sagittal MIPS were obtained from the axial shyam a set and were submitted for review. Automated dose lowering techniques and/or adjustment according to patient size were utilized for this exam. CT DOSE: 11.76 mGy.cm Comparison: None available at the time of this dictation. FINDINGS: Lungs and pleura: Multifocal consolidative opacities are seen. Bronchial wall thickening and mucous p lugging are seen. Heart and pericardium: Heart size is normal. No pericardial effusion. Vessels: No evidence of pulmonary embolism. Mediastinum and glenis: Unremarkable. Chest wall and lower neck: Unremarkable. Abdomen: Unremarkable. Bones: Degenerative changes in the thoracic spine. IMPRESSION: No pulmonary embolus. Multifocal airspace opacities are seen compatible with pneumonia with or withou t an element of aspiration. Infectious/inflammatory airways disease is seen. ACT 112: Negative or not required by law. Electronically signed by: Watson Long M.D. 02/05/2023 5:42 PM
--- NOTE | 2023-02-05 17:56 | CT Scan Report ---
CT abd pelvis IV con only CLINICAL HISTORY: RLQ Pain TECHNIQUE: Helical axial images of the abdomen and pelvis were obtained and displayed. Automated dose lowering techniques and/or adjustment according to patient size were utilized for this exam. This e xam was performed with intravenous contrast. CT DOSE: 1466.06 mGy.cm COMPARISON: None available at the time of this dictation. FINDINGS: Lower chest: For findings above the diaphragm, please see CT chest performed same day. Liver: Unremarkable. No focal lesions are seen. Gallbladder and biliary tree: No calcified gallstones. Normal caliber wall. No intra- or extrahepatic biliary ductal dilation. Pancreas: Unremarkable, no focal lesions. Spleen: Unremarkable. Adrenals: Unremarkable. Kidneys and ureters: Unremarkable. Bladder: Elliott catheter is seen. Reproductive organs: Unremarkable. Bowel: Diverticulosis is seen without evidence of diverticulitis. The appendix is not definitely seen however there are no secondary signs of appendicitis. Lymph nodes Retroperitoneal: Unremarkable. Pelvic: Unremarkable. Mesenteric: Unremarkable. Peritoneum: Normal. Vessels: Atherosclerotic calcifications are seen. Abdominal wall: Unremarkable. Bones: Degenerative changes are seen in the lumbar spine with postsurgical changes of decompression a nd fusion. IMPRESSION: No acute abnormalities are seen. ACT 112: Negative or not required by law. Electronically signed by: Watson Long M.D. 02/05/2023 5:54 PM
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
[2023-02-05] MEDS ORDERED: ACETAMINOPHEN 325 MG TAB ONE (22:33)
[2023-02-05] MEDS: OLANZapine 10 MG/2.1 ML SDV IM PRN (22:50)
[2023-02-05] MEDS ORDERED: POLYETHYLENE (MIRALAX) 17 GM PACK PO PRN (23:07)
[2023-02-05] MEDS ORDERED: GLUCOSE 10 TAB/TUBE PO PRN (23:07)
[2023-02-05] MEDS ORDERED: ACETAMINOPHEN 325 MG TAB PO PRN (23:07)
[2023-02-05] MEDS ORDERED: GLUCAGON FOR INJ 1 MG VIAL SQ PRN (23:07)
[2023-02-05] MEDS ORDERED: SODIUM CHLORIDE 0.9% 1,000 ML IV SCH (23:07)
[2023-02-05] MEDS ORDERED: GLUCOSE 40% GEL 15 GM TUBE PO PRN (23:07)
[2023-02-05] MEDS ORDERED: CARBOHYDRATES FOR HYPOGLYCEMIA PO PRN (23:07)
[2023-02-05] MEDS ORDERED: DEXTROSE 50% 50 ML SYRINGE IV PRN (23:07)
[2023-02-05] MEDS ORDERED: ONDANSETRON INJ 2 MG/ML 2 ML VIAL IV PRN (23:07)
[2023-02-06] MEDS: LABETALOL HCL 100 MG TAB PO SCH ×2 (00:09→08:07)
[2023-02-06] MEDS: ATORVASTATIN 40 MG TAB PO SCH ×2 (00:09→20:22)
[2023-02-06] MEDS: QUEtiapine FUMARATE 25 MG TABLET PO SCH ×3 (00:10→20:22)
[2023-02-06] MEDS: DOXYCYCLINE HYCLATE 100 MG in DEXTROSE 5% MINI-B 100 ML IV SCH ×3 (00:17→23:59)
[2023-02-06] MEDS: LANTUS PER UNIT CHARGE SQ SCH ×3 (00:46→20:36)
[2023-02-06] MEDS: INSULIN ASPART PER UNIT CHARGE SC SCH ×6 (00:47→21:04)
[2023-02-06] MEDS: CEFEPIME 2,000 MG in SYRINGE 0 ML IV SCH ×3 (02:04→17:34)
[2023-02-06] MEDS ORDERED: LEVALBUTEROL 1.25 MG/3 ML NEB NEB PRN (02:41)
[2023-02-06] MEDS ORDERED: SODIUM CHLORIDE 0.9% 500 ML IV SCH ×2 (03:15→05:45)
[2023-02-06] MEDS: LEVOTHYROXINE SODIUM 25 MCG TABLET PO SCH (05:42)
[2023-02-06] MEDS: LEVOTHYROXINE SODIUM 100 MCG TABLET PO SCH (05:42)
[2023-02-06] MEDS: ENOXAPARIN INJ 40 MG/0.4 ML SYR SQ SCH (05:49)
[2023-02-06 07:31] LABS: Basophils # (auto) 0.08 K/uL (0.00-0.20); Basophils % (auto) 0.7 %; Dohle Bodies 1+; Hematocrit (blood only) 29.1 % (37.0-47.0); Hemoglobin 9.6 g/dl (12.0-16.0); Immature Granulocytes # (auto) 0.11 K/uL (0.01-0.20); Lymphocytes # (auto) 0.72 K/uL (1.20-3.40); Lymphocytes % (auto) 6.3 %; Mean Corpuscular Hemoglobin 24.6 pg (25.0-34.0); Mean Corpuscular Volume 74.6 fL (80.0-100.0); Mean Platelet Volume 9.1 fL (9.4-12.4); Monocytes # (auto) 0.46 K/uL (0.11-0.59); Neutrophils # (auto) 10.14 K/uL (1.40-6.50); Platelet Count 224 K/uL (130-400); RDW Coefficient of Variation 11.9 % (11.5-14.5); Toxic Vacuolation 1+; White Blood Count 11.51 K/ul (4.8-10.8)
[2023-02-06 07:42] LABS: Estimated Average Glucose 283 mg/dl; Hemoglobin A1C 11.5 % (4.5-5.6)
[2023-02-06] MEDS ORDERED: ALBUT/IPRATROP 3MG/0.5MG NEB 3 ML VIAL NEB STA (07:46)
[2023-02-06 07:49] LABS: BUN Creatinine Ratio 22.4 (10-20); Calcium 7.2 mg/dl (8.6-10.3); Creatinine Clr Calc Pharmacy 77.1 ml/min; Est GFR (African American) 110.7 ml/min; Est GFR (Non-African American) 95.5 ml/min; Magnesium 1.4 mg/dl (1.7-2.4); Potassium 3.4 mmol/L (3.5-5.1)
--- NOTE | 2023-02-06 07:49 | Emergency Department Note ---
ED Visit Note A beau barger was called. The patient had been admitted to the hospital but was a hold in the ED. On assessment, the patient's blood pressure was somewhat low at around 88 systolic. She was awake and interactive. She had crackles on lung exam. No respiratory distress. The beau barger team arrived. I did order for an ABG, an x-ray, BiPAP and a DuoNeb. The attending physician has assumed care. .
[2023-02-06] MEDS ORDERED: SODIUM CHLORIDE 0.9% 250 ML IV ONE (08:27)
--- NOTE | 2023-02-06 08:27 | XRay Report ---
XR chest 1V portable HISTORY: 62 years-old Female sob acute shortness of breath COMPARISON: 02/05/2023 TECHNIQUE: AP view of the chest FINDINGS: Cardiac silhouette is enlarged. The study is limited secondary to positioning. Left subclavian pacer. Patchy bilateral airspace opacities are again noted, mildly progressed within the lung bases. No pne umothorax, pleural effusion or overt pulmonary edema. Degenerative changes of the shoulders and spine . Moderate hemidiaphragmatic elevation. IMPRESSION: Multifocal pneumonia redemonstrated with mildly progressed basilar airspace opacities. ACT 112: Negative or not required by law. The above report was generated using voice recognition software. It may contain grammatical, syntax o r spelling errors. Electronically signed by: Devin Johnson M.D. 02/06/2023 8:25 AM
[2023-02-06] MEDS ORDERED: SODIUM CHLORIDE 0.9% 500 ML IV ONE ×2 (08:28→09:34)
--- NOTE | 2023-02-06 08:28 | Pulmonary Consultation ---
Date of Consultation February 06, 2023 Assessment & Plan (1) Metabolic encephalopathy: (2) COPD (chronic obstructive pulmonary disease): (3) Acute respiratory failure: (4) Multifocal pneumonia: Plan CT chest 02/05/2023 personally reviewed: Multilobar pneumonia appreciated bilaterally affecting the upper as well as lower lobes Most dense consolidative processes in the right lower lobe as well as the inferior lobe of the lingula Mild mediastinal lymphadenopathy -- Acute hypoxic respiratory failure Secondary to multilobar pneumonia Respiratory bio fire positive for influenza A, negative for everything else Nasal MRSA negative Procalcitonin 21.53 -- Plan: Patient is in respiratory distress, with normal be able to tolerate BiPAP. Blood pressure is also on the softer side. I will transfer the patient to the ICU. High probability of being intubated. Continue with antibiotics with atypical coverage Follow-up sputum culture Case was discussed with primary team I have personally spent 63 minutes of critical care time in the direct management of this patient. This is a life/limb threatening event. This includes time spent evaluating patient, direct bedside care, chart review, placing orders, interpretation of diagnostic studies, discussion with consultants, patient, and family members, as well as other required patient management activities. This time is exclusive of all separately billable procedures, and teaching time and separate from and in addition to any other critical care service time. Please note the above document was generated using voice recognition software. It may contain grammatical, syntax or spelling errors. History of Present Illness Attending Physician: Dany Larose MD History of Present Illness 62-year-old female admitted to the hospital for increased confusion and lethargy Past medical history: Diabetes, hypertension, dyslipidemia, borderline anxiety disorder, bipolar disorder, hep C opioid dependence, SONI, history of PE Pulmonary consulted because patient was requiring increased oxygen requirement and was getting BiPAP dependent. At the time of examination patient was on BiPAP 01/13, 50% saturating 91-92% Respiratory rate was in the mid to high 20s. Systolic blood pressure was in the 90s with MAP hovering around 65-67 She was given Zyprexa before me seeing her. She was somnolent. Still actively trying to take the mask off Please make note patient is a poor historian. He is was obtained from previous chart, RN at bedside as well as Dr. Larose Did complain of shortness of breath. Denied any chest pain. No nausea or vomiting Allergies Allergy/AdvReac Type Severity Reaction Status Date / Time albuterol Allergy Unknown Unknown Verified 02/05/23 17:02 Corticosteroids Allergy Unknown Unknown Verified 02/05/23 17:02 (Glucocorticoids) escitalopram Allergy Unknown Unknown Verified 02/05/23 17:02 ketorolac Allergy Unknown Unknown Verified 02/05/23 17:02 mushroom Allergy Unknown Unknown Verified 02/05/23 17:02 NSAIDS (Non-Steroidal Allergy Unknown Unknown Verified 02/05/23 17:02 Anti-Inflamma prednisolone Allergy Unknown Unknown Verified 02/05/23 17:02 codeine AdvReac Unknown Nausea Verified 02/05/23 17:02 Fish Containing Products AdvReac Unknown edema Verified 02/05/23 17:02 prednisone AdvReac Unknown Unknown Verified 02/05/23 17:02 Home Medications Medication Instructions Recorded Confirmed Type amlodipine 10 mg tablet 10 mg PO DAILY 02/05/23 02/05/23 History atorvastatin 40 mg tablet 40 mg PO HS 02/05/23 02/05/23 History clopidogrel 75 mg tablet 75 mg PO DAILY 02/05/23 02/05/23 History diazepam 2 mg tablet 2 mg PO BID PRN bipolar 02/05/23 02/05/23 History duloxetine 30 mg capsule,delayed 30 mg PO DAILY 02/05/23 02/05/23 History release insulin aspart U-100 100 unit/mL 18 unit subcut AC 02/05/23 02/05/23 History subcutaneous cartridge (Novolog PenFill U-100 Insulin aspart) insulin aspart U-100 100 unit/mL 1 sliding scale dose subcut 02/05/23 02/05/23 History subcutaneous solution (Novolog USEASDIRECTD U-100 Insulin aspart) insulin detemir U-100 100 unit/mL 25 unit subcut DAILY 02/05/23 02/05/23 History subcutaneous solution labetalol 100 mg tablet 100 mg PO BID 02/05/23 02/05/23 History levothyroxine 100 mcg tablet 100 mcg PO DAILY 02/05/23 02/05/23 History levothyroxine 25 mcg tablet 25 mcg PO DAILY 02/05/23 02/05/23 History lisinopril 10 mg tablet 10 mg PO DAILY 02/05/23 02/05/23 History metformin 500 mg tablet 500 mg PO BID 02/05/23 02/05/23 History nitrofurantoin macrocrystal 100 mg 100 mg PO BID 02/05/23 02/05/23 History capsule pantoprazole 40 mg tablet,delayed 40 mg PO DAILY 02/05/23 02/05/23 History release quetiapine 25 mg tablet 25 mg PO BID 02/05/23 02/05/23 History trazodone 100 mg tablet 100 mg PO HS PRN Insomnia 02/05/23 02/05/23 History trazodone 50 mg tablet 25 mg PO HS PRN Insomnia 02/05/23 02/05/23 History Patient History Medical History (Updated 02/06/23 @ 16:01 by Jenny Sales MD, [facility]) COPD (chronic obstructive pulmonary disease) TIA (transient ischemic attack) SONI (obstructive sleep apnea) CAD (coronary artery disease) Hx of insulin dependent diabetes mellitus Borderline personality disorder Bipolar disorder Chronic GERD Hypertension Hypothyroid CVA (cerebral vascular accident) High cholesterol Social History Smoking Status: Unknown if ever smoked Hx Alcohol Use: No Preferred Language: Welsh Communication Ability: Effective Unit Educator Required: No Beliefs That Will Affect Care: None Current Living Situation: Spouse Feels Safe at Home: Yes Review of Systems 2 Review of Systems: All systems reviewed & are unremarkable except as noted in HPI & below and Unobtainable due to cognitive status Physical Exam 2 Physical Exam: Constitutional: No acute distress HEENT: EOMI, PERRLA Respiratory system: Decreased air entry bilaterally, no wheeze, no rhonchi, positive crackles bilaterally CVS: S1-S2 positive, no murmurs or gallops Abdomen: Soft, nontender, nondistended, positive bowel sounds x4 Extremities: +1 pulses bilaterally radialis/ dorsalis pedis, no cyanosis, no edema Neuro: Awake and alert, oriented to only self Psych: Restless mood and affect G/U: Positive Elliott Skin: no rashes, warm and dry Lymphatic: no cervical or axillary lymphadenopathy Results & Data Results & Data Vital Signs (Past 12 Hours) Vital Signs Temp Pulse Pulse Resp BP BP Pulse Ox 02/06/23 08:02 94 H 31 H 80/55 L 96 02/06/23 08:01 93 H 29 H 96 02/06/23 07:43 90 02/06/23 07:30 92 H 20 88/55 L 92 02/06/23 03:11 37 C 02/06/23 03:06 89 25 H 93 02/06/23 03:06 76/58 L 02/06/23 03:04 72/51 L 02/06/23 03:04 72/51 L 02/06/23 03:04 89 25 H 91 02/06/23 03:02 89 26 H 91 02/06/23 03:02 75/54 L 02/06/23 03:00 89 26 H 91 02/06/23 03:00 79/53 L 02/06/23 02:38 36.9 C 02/06/23 02:30 90 22 88 L 02/06/23 02:00 102/63 02/06/23 01:18 90 30 H 94 02/06/23 01:00 130/78 02/06/23 00:30 90 26 H 90 02/06/23 00:00 89 26 H 89 L 02/06/23 00:00 114/78 02/05/23 23:34 02/05/23 23:34 37.8 C H 02/05/23 23:30 89 26 H 90 02/05/23 23:00 92 H 27 H 92 02/05/23 23:00 126/77 02/05/23 21:28 92 H 18 117/72 92 02/05/23 20:40 93 H 29 H 94 02/05/23 20:30 93 H 25 H O2 Del Method O2 Del Method O2 Flow Rate O2 Flow Rate FiO2 02/06/23 08:02 BiPAP 02/06/23 08:01 50 02/06/23 07:43 02/06/23 07:30 Oxymask 10 02/06/23 03:11 02/06/23 03:06 02/06/23 03:06 02/06/23 03:04 02/06/23 03:04 02/06/23 03:04 02/06/23 03:02 02/06/23 03:02 02/06/23 03:00 02/06/23 03:00 02/06/23 02:38 02/06/23 02:30 02/06/23 02:00 02/06/23 01:18 6 02/06/23 01:00 02/06/23 00:30 Oxymask 6 02/06/23 00:00 Nasal Cannula 4 02/06/23 00:00 02/05/23 23:34 Nasal Cannula 4 02/05/23 23:34 02/05/23 23:30 Nasal Cannula 4 02/05/23 23:00 Nasal Cannula 4 02/05/23 23:00 02/05/23 21:28 Nasal Cannula 4 02/05/23 20:40 Nasal Cannula 4 02/05/23 20:30 Laboratory Results 02/06/23 06:34 02/06/23 06:34 PG Care Time/CCT Total # of Minutes Spent Total Time Spent with Patient: Total time spent is greater than 50% in coordination of care (as documented) at patient's floor/unit and/or counseling patient: Coding Level of Care Code 13563 CRITICAL CARE 1ST 30-74M Diagnoses Metabolic encephalopathy G93.41 COPD (chronic obstructive pulmonary disease) J44.9 Acute respiratory failure J96.00 Multifocal pneumonia J18.9
[2023-02-06] MEDS: OLANZapine 10 MG/2.1 ML SDV IM PRN (08:29)
[2023-02-06] MEDS ORDERED: NSS + 20MEQ KCL 20 MEQ/1,000 ML BAG IV SCH (08:30)
[2023-02-06] MEDS: MAGNESIUM SULFATE / D5W 1 GM/100 ML BAG IV SCH ×3 (08:57→12:38)
[2023-02-06] MEDS ORDERED: amLODIPine BESYLATE 5 MG TAB PO SCH (09:00)
[2023-02-06] MEDS ORDERED: PANTOprazole 40 MG TAB PO SCH (09:00)
[2023-02-06] MEDS ORDERED: lisinopril 10 MG TAB PO SCH (09:00)
[2023-02-06] MEDS: POTASSIUM CHLORIDE / WTR 10 MEQ/100 ML PLCT IV SCH ×3 (09:05→12:12)
[2023-02-06] MEDS: OSELTAMIVIR PHOSPHATE SUSP 30 MG/5 ML UDP PO SCH ×2 (09:51→20:22)
[2023-02-06] MEDS: DULoxetine HCL 30 MG CAP PO SCH (09:51)
[2023-02-06] MEDS: CLOPIDOGREL BISULFATE 75 MG TAB PO SCH (09:51)
[2023-02-06] MEDS ORDERED: HYDROCORTISONE SOD 100 MG in SYRINGE 0 ML IV ONE (10:00)
[2023-02-06] MEDS ORDERED: RAPID SEQUENCE INDUCTION BAG ONE (11:24)
[2023-02-06] MEDS ORDERED: NOREPINEPHRINE/D5W 4 MG/250 ML IV ONE (11:34)
[2023-02-06] MEDS ORDERED: fentaNYL citrate 2,500 MCG/250 ML BAG IV ONE (12:04)
[2023-02-06] MEDS ORDERED: POTASSIUM CHLORIDE / WTR 20 MEQ/100 ML PLCT IV ONE (12:30)
[2023-02-06] MEDS ORDERED: STAT IV Infusion **Titration per Protocol STA ×4 (12:32→17:53)
[2023-02-06] MEDS ORDERED: PROPOFOL IV EMULSION 10 MG/ML 100 ML VIAL IV ONE (12:46)
[2023-02-06] MEDS: fentaNYL citrate 2,500 MCG/250 ML BAG IV SCH (12:53)
--- NOTE | 2023-02-06 12:53 | XRay Report ---
XR chest 1V portable HISTORY: 62 years-old Female Intubation and central line placement acute respiratory failure COMPARISON: 02/06/2023 TECHNIQUE: AP view of the chest FINDINGS: Endotracheal tube overlies the midline, 5.5 cm superior to the sb. Dual-lead left subclavian pace r. Enteric tube distal tip projects over the gastric body. Right IJ central venous catheter distal ti p projects over the mid SVC. Bilateral mixed interstitial and alveolar opacities are redemonstrated, not significant changed. No pneumothorax or large pleural effusion. Bones appear grossly intact. IMPRESSION: 1. Lines and tubes as above. 2. No pneumothorax. 3. Unchanged appearance of the multifocal pneumonia. ACT 112: Negative or not required by law. The above report was generated using voice recognition software. It may contain grammatical, syntax o r spelling errors. Electronically signed by: Devin Johnson M.D. 02/06/2023 12:52 PM
[2023-02-06] MEDS ORDERED: PROPOFOL IV EMULSION 10 MG/ML 20 ML VIAL IV STA (12:54)
[2023-02-06] MEDS ORDERED: PROPOFOL BOLUS FROM BAG IV STA (13:04)
[2023-02-06] MEDS: propofoL 1,000 MG/100 ML VIAL IV SCH ×2 (13:23→19:55)
[2023-02-06] MEDS: PROPOFOL BOLUS FROM BAG IV PRN (13:45)
--- NOTE | 2023-02-06 13:57 | Procedure Note ---
Procedure Note Date of Service February 06, 2023 Supervising Physician Co-Signing Physician Notes INTUBATION PROCEDURE NOTE: Attending: Dr Jenny Sales MD Patient was evaluated and plan to intubate was made for respiratory failure/distress. Sedative agent used: Lidocaine 100 mg, etomidate 10 mg Paralysis agent used: Rocuronium 30 mg Emergent consent was implied given patients rapidly declining clinical status and need for airway protection. The patient was prepared in the appropriate fashion. The patient was easily pre-oxygenated by using [id number] ventilation. With help of CMAC grade 1 vocal cords were visualized and 7 and half Serbian ETT was introduced on first attempt to 23 cm at the lip. The stylette was removed and balloon was inflated with 10mL of air. Appropriate Colorimetric change was appreciated for at least 10 breaths. Bilateral chest rise and breath sounds were appreciated without air sounds in the epigastrium. Patient tolerated the procedure well and there were no immediate complications. Chest Xray to follow for confirming placement. Coding CPT Codes Resuscitation - Resuscitation: 33736 Endotracheal Intubation, emergency ([id number]) [facility] [place] Procedure Codes (Charges) Resuscitation Resuscitation: 40788 Endotracheal Intubation, emergency
--- NOTE | 2023-02-06 13:58 | Procedure Note ---
Procedure Note Date of Service February 06, 2023 Note Procedure: Inserting ultrasound-guided central dragline oiler: Dr. Jenny Sales Indication: Hypotension Consent: Emergent consent was applied Anesthesia: 1% lidocaine without epinephrine local. Procedure: Consent was verified and timeout performed. Appropriate imaging studies were reviewed prior to the procedure. Under aseptic and sterile condition, right IJ vein was accessed under direct ultrasound guidance. Guidewire was confirmed to be within the lumen of vein with the help of ultrasound. Catheter was introduced via Seldinger technique. Guide a wire was removed. Good non-pulsatile blood flow was appreciated from all the ports. The catheter was placed at 16 cm and sutured in place. BioPatch was applied to the catheter and a sterile Tegaderm dressing was applied over the catheter with careful attention to sterility. Lung sliding was appreciated post procedure with the help ultrasound. Chest x-ray to follow Patient tolerated the procedure well. Blood loss: Less than 2 cc Complications: None Coding CPT Codes Tubes, Drains, and Vasc Access - Tubes, Drains, and Vasc Access: [id number] Place catheter in vein superior or inferior vena cava ([id number]) Tubes, Drains, and Vasc Access - Tubes, Drains, and Vasc Access: [id number] Ultrasound Guidance For Vascular ([id number]) [facility] [place] (Charges) Tubes, Drains, and Vasc Access Procedure 1: Tubes, Drains, and Vasc Access: [id number] Place catheter in vein superior or inferior vena cava Procedure 2: Tubes, Drains, and Vasc Access: [id number] Ultrasound Guidance For Vascular
[2023-02-06] MEDS ORDERED: NOREPINEPHRINE/D5W 4 MG/250 ML PLCT IV SCH (14:00)
[2023-02-06] MEDS: fentaNYL BOLUS from BAG IV PRN ×2 (14:17→20:10)
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
[2023-02-06] MEDS: HYDROCORTISONE SOD 50 MG in SYRINGE 0 ML IV SCH (17:36)
[2023-02-06] MEDS ORDERED: PHARMACY GLYCEMIC MGMT CONSULT PRN (17:47)
[2023-02-06] MEDS ORDERED: INSULIN PROTOCOL GOAL RANGE ONE (17:53)
[2023-02-06] MEDS ORDERED: NovoLIN-R BOLUS FROM BAG IV ONE (18:00)
[2023-02-06] MEDS ORDERED: INSULIN REGULAR 250 UNITS in SODIUM CHLORIDE 0.9% 247.5 ML IV SCH (18:00)
[2023-02-06] MEDS ORDERED: PNEUMOCOCCAL VACCINE (PCV20) 20-VAL CONJ-DIP CRM/PF 0.5 ML SYR IM ONE (18:41)
[2023-02-06 18:45] LABS: Albumin Globulin Ratio 0.8 (0.9-2); Albumin Level 2.5 gm/dl (3.4-5.0); BUN Creatinine Ratio 24.6 (10-20); Bilirubin,Total 0.3 mg/dl (0.2-1.0); Calcium 7.6 mg/dl (8.6-10.3); Creatinine Clr Calc Pharmacy 79.5 ml/min; Est GFR (African American) 111.8 ml/min; Est GFR (Non-African American) 96.5 ml/min; Globulin 3.1 gm/dl (2.5-4.0); Magnesium 2.3 mg/dl (1.7-2.4); Phosphorus 1.7 mg/dl (2.5-4.9); Total Protein 5.6 gm/dl (6.0-8.3)
[2023-02-06] MEDS ORDERED: SODIUM PHOSPHATE 3 MMOL/1 ML INFUSION IV STA (19:00)
[2023-02-06] MEDS ORDERED: SODIUM PHOSPHATE 21 MMOL in SODIUM CHLORIDE 0.9% 500 ML IV ONE (19:30)
[2023-02-07] MEDS: HYDROCORTISONE SOD 50 MG in SYRINGE 0 ML IV SCH ×2 (02:05→13:49)
[2023-02-07] MEDS: CEFEPIME 2,000 MG in SYRINGE 0 ML IV SCH ×3 (02:05→17:33)
[2023-02-07] MEDS: fentaNYL BOLUS from BAG IV PRN ×2 (03:04→11:00)
[2023-02-07 03:56] LABS: Hematocrit (blood only) 25.9 % (37.0-47.0); Hemoglobin 8.8 g/dl (12.0-16.0); Mean Corpuscular Hemoglobin 25.1 pg (25.0-34.0); Mean Corpuscular Volume 73.8 fL (80.0-100.0); Mean Platelet Volume 9.1 fL (9.4-12.4); Platelet Count 251 K/uL (130-400); RDW Coefficient of Variation 12.1 % (11.5-14.5); RDW Standard Deviation 32.2 fL (36.4-46.3); Red Blood Count 3.51 M/uL (4.20-5.40); White Blood Count 10.86 K/ul (4.8-10.8)
[2023-02-07 04:08] LABS: BUN Creatinine Ratio 24.6 (10-20); Calcium 7.5 mg/dl (8.6-10.3); Creatinine Clr Calc Pharmacy 84.7 ml/min; Est GFR (African American) 114.2 ml/min; Est GFR (Non-African American) 98.5 ml/min; Phosphorus 2.5 mg/dl (2.5-4.9); Potassium 3.1 mmol/L (3.5-5.1)
[2023-02-07] MEDS ORDERED: POTASSIUM CHLORIDE 20 MEQ/15 ML UDC PO STA (05:45)
[2023-02-07] MEDS: LEVOTHYROXINE SODIUM 100 MCG TABLET PO SCH (05:55)
[2023-02-07] MEDS: ENOXAPARIN INJ 40 MG/0.4 ML SYR SQ SCH (05:55)
[2023-02-07] MEDS: LEVOTHYROXINE SODIUM 25 MCG TABLET PO SCH (05:55)
[2023-02-07] MEDS: POTASSIUM CHLORIDE / WTR 10 MEQ/100 ML PLCT IV SCH ×2 (05:56→07:10)
[2023-02-07] MEDS: PROPOFOL BOLUS FROM BAG IV PRN ×2 (07:00→21:53)
[2023-02-07] MEDS: propofoL 1,000 MG/100 ML VIAL IV SCH ×7 (07:03→23:40)
[2023-02-07] MEDS: INSULIN ASPART PER UNIT CHARGE SC SCH ×5 (07:11→23:49)
--- NOTE | 2023-02-07 07:22 | XRay Report ---
SINGLE VIEW CHEST CLINICAL HISTORY: Respiratory failure FINDINGS: An AP, portable, upright chest radiograph is compared to study dated 02/06/2023 and correla ward with chest CT dated 02/05/2023. A 2-lead cardiac pacemaker is again noted. Endotracheal tube, ent marry tube, and a right internal jugular central venous catheter are unchanged interposition. The hear t is enlarged and noting atherosclerotic calcification of the thoracic aorta. The pulmonary vasculatu re is noncongested. Multifocal airspace consolidation has not significantly changed. This is greatest in the left midlung. No large pleural effusion or pneumothorax is seen. The skeletal structures are osteopenic. The bony thorax is grossly intact. Arthritic change is seen in the shoulders. IMPRESSION: 1. Multifocal airspace consolidation. This typical for pneumonia and unchanged from yesterday. 2. Cardiomegaly and cardiac pacemaker without radiographic evidence of congestive failure. 3. Stable lines and tubes. ACT 112: Negative or not required by law. Electronically signed by: Marry Osullivan M.D. 02/07/2023 7:21 AM
[2023-02-07] MEDS ORDERED: MAGNESIUM SULFATE / D5W 1 GM/100 ML BAG IV ONE ×2 (07:57→13:14)
--- NOTE | 2023-02-07 07:58 | Critical Care Progress Note ---
Date of Service February 07, 2023 Assessment & Plan (1) Metabolic encephalopathy: (2) COPD (chronic obstructive pulmonary disease): (3) Acute respiratory failure: (4) Multifocal pneumonia: Plan Reason Critically Ill: 62-year-old female admitted to the hospital for increased confusion and lethargy. Transferred to the ICU for respiratory distress Past medical history: Diabetes, hypertension, dyslipidemia, borderline anxiety disorder, bipolar disorder, hep C opioid dependence, SONI, history of PE Neuro - [facility]: Negative --Metabolic encephalopathy Multifactorial Sepsis playing a role Also has history of bipolar disorder Calcium, glucose within normal limit, sodium (chronically mildly low) CT head - 02/06/2023 --Bipolar disorder with anxiety On Cymbalta and Seroquel on hold UDS positive for cocaine, opioids, ecstasy as well as marijuana on 02/07/2023 Cardiac - --Shock --> resolved Likely septic Continue vasopressor support to keep MAP greater than 65 --History of hypertension On lisinopril and amlodipine at home Respiratory - -- VDRF Likely secondary to multilobar pneumonia Continue with ventilatory support Keep RASS -1 -- Multilobar pneumonia Continue with antibiotics Influenza A also positive CT chest 02/05/2023 personally reviewed: Multilobar pneumonia appreciated bilaterally affecting the upper as well as lower lobes Most dense consolidative processes in the right lower lobe as well as the inferior lobe of the lingula Mild mediastinal lymphadenopathy --History of pulmonary emboli Not on any anticoagulation right now GI - -- Hepatitis C History of opioid use RENAL/LYTES - -- Non-anion gap metabolic acidosis Urine does show +2 ketones Continue with insulin drip Patient did get 2 A of bicarb in the ED ENDO - -- Diabetes type 2 Continue with ICU hyperglycemia protocol --Hypothyroidism On 125 mcg of levothyroxine at home TSH 0.4 HEME - -- Microcytic anemia Monitor H&H ID - -- Multilobar pneumonia Procalcitonin 21.53 Nasal MRSA negative Respiratory bio fire negative for everything except for influenza A --Prophylaxis VTE: Lovenox GI: Pantoprazole Lines: Right IJ, positive Elliott, positive ETT Diet: Tube feeds Plan: In/out: +1.1 L, urine output 2900 mL Hold Lovenox, monitor H&H is trending down. Patient is positive for liters since coming to the hospital it could be secondary to that. Hypokalemia is being replaced. Repeat BMP later today Try to get the patient off of insulin drip and transition to subcu insulin. Start tube feeds For non-anion gap metabolic acidosis. Etiology could be renal versus medication. Follow-up urine lites Follow-up salicylate and Tylenol level along with alcohol level I have personally spent 48 minutes of critical care time in the direct management of this patient. This is a life/limb threatening event. This includes time spent evaluating patient, direct bedside care, chart review, placing orders, interpretation of diagnostic studies, discussion with consultants, patient, and family members, as well as other required patient management activities. This time is exclusive of all separately billable procedures, and teaching time and separate from and in addition to any other critical care service time. Please note the above document was generated using voice recognition software. It may contain grammatical, syntax or spelling errors. Admission and Anticipated Discharge Date Admission Date: February 05, 2023 Subjective Patient seen and examined at bedside. No acute distress, notable since overnight She was on 75 of fentanyl and 30 of propofol She was RASS -2. She was arousable but she was not following any commands She was breathing with the vent. Has been afebrile Review of Systems 2 Review of Systems: Unobtainable due to endotracheal tube Physical Exam 2 Physical Exam: Constitutional: No acute distress HEENT: PERRLA Respiratory system: Decreased air entry bilaterally, no wheeze, no rhonchi, positive crackles bilaterally CVS: S1-S2 positive, no murmurs or gallops Abdomen: Soft, nontender, nondistended, positive bowel sounds x4 Extremities: +1 pulses bilaterally radialis/ dorsalis pedis, no cyanosis, no edema Neuro: Intubated, sedated, RASS -2, moving all the extremities actively on waking up Psych: Unable to assess G/U: Positive Elliott Skin: no rashes, warm and dry Lymphatic: no cervical or axillary lymphadenopathy Results & Data Results & Data Vital Signs (Past 12 Hours) Vital Signs Temp Pulse Resp BP Pulse Ox Pulse Ox O2 Del Method 02/07/23 07:43 77 20 98 02/07/23 07:00 87 20 99/67 L 97 Mechanical Vent 02/07/23 06:46 95 H 16 137/94 95 Mechanical Vent 02/07/23 06:30 144/97 H 02/07/23 06:30 90 15 82 L 02/07/23 06:15 77 20 100 02/07/23 06:15 120/76 02/07/23 06:00 109/74 02/07/23 06:00 74 20 99 02/07/23 05:45 105/70 02/07/23 05:45 74 20 99 02/07/23 05:30 108/73 02/07/23 05:30 76 20 99 02/07/23 05:15 74 20 98 02/07/23 05:15 103/67 02/07/23 05:00 76 20 98 02/07/23 05:00 101/69 02/07/23 04:45 77 20 98 02/07/23 04:45 100/68 02/07/23 04:30 95/67 L 02/07/23 04:30 77 20 97 02/07/23 04:28 78 20 98 02/07/23 04:15 99/65 L 02/07/23 04:15 80 20 98 02/07/23 04:00 80 20 97 02/07/23 04:00 90/60 L 02/07/23 03:45 82 20 96 02/07/23 03:45 85/60 L 02/07/23 03:30 86 20 02/07/23 03:30 87/59 L 02/07/23 03:15 98 H 20 02/07/23 03:15 109/73 02/07/23 03:02 105 H 24 97 02/07/23 03:02 122/83 02/07/23 03:00 99 H 21 79 L 02/07/23 02:45 138/87 02/07/23 02:45 97 H 19 02/07/23 02:30 92 H 19 02/07/23 02:16 88 24 91 02/07/23 02:16 147/92 H 02/07/23 02:00 72 20 02/07/23 01:45 99/67 L 02/07/23 01:45 72 20 98 02/07/23 01:30 71 20 98 02/07/23 01:30 103/72 02/07/23 01:15 71 20 98 02/07/23 01:15 104/69 02/07/23 01:00 104/71 02/07/23 01:00 72 20 98 02/07/23 00:45 72 20 98 02/07/23 00:45 104/67 02/07/23 00:30 100/67 02/07/23 00:30 72 20 98 02/07/23 00:15 71 20 98 02/07/23 00:15 101/68 02/07/23 00:00 78 02/07/23 00:00 94/62 L 02/07/23 00:00 71 20 98 02/06/23 23:45 71 20 98 02/06/23 23:45 89/62 L 02/06/23 23:30 72 20 98 02/06/23 23:30 87/62 L 02/06/23 23:15 85/58 L 02/06/23 23:15 73 20 02/06/23 23:07 98 02/06/23 23:00 73 20 98 02/06/23 23:00 97/66 L 02/06/23 22:45 73 20 97 02/06/23 22:45 96/65 L 02/06/23 22:38 72 20 99 02/06/23 22:30 100/67 02/06/23 22:30 73 20 100 02/06/23 22:15 72 20 99 02/06/23 22:15 87/60 L 02/06/23 22:00 83/58 L 02/06/23 22:00 74 20 99 02/06/23 21:45 85/58 L 02/06/23 21:45 76 20 99 02/06/23 21:30 77 20 99 02/06/23 21:30 83/60 L 02/06/23 21:15 82 20 98 02/06/23 21:15 74/52 L 02/06/23 21:13 73/54 L 02/06/23 21:13 81 20 98 02/06/23 21:06 83 20 02/06/23 21:06 66/49 L 02/06/23 21:00 84 20 02/06/23 21:00 66/45 L 02/06/23 20:58 65/47 L 02/06/23 20:58 84 17 02/06/23 20:52 66/45 L 02/06/23 20:52 84 20 97 02/06/23 20:45 72/48 L 02/06/23 20:45 87 20 02/06/23 20:30 90/64 L 02/06/23 20:30 91 H 20 02/06/23 20:00 36.5 C 130/79 02/06/23 20:00 95 H 27 H 98 02/06/23 20:00 Mechanical Vent O2 Del Method FiO2 02/07/23 07:43 40 02/07/23 07:00 40 02/07/23 06:46 40 02/07/23 06:30 02/07/23 06:30 02/07/23 06:15 02/07/23 06:15 02/07/23 06:00 02/07/23 06:00 02/07/23 05:45 02/07/23 05:45 02/07/23 05:30 02/07/23 05:30 02/07/23 05:15 02/07/23 05:15 02/07/23 05:00 02/07/23 05:00 02/07/23 04:45 02/07/23 04:45 02/07/23 04:30 02/07/23 04:30 02/07/23 04:28 40 02/07/23 04:15 02/07/23 04:15 02/07/23 04:00 02/07/23 04:00 02/07/23 03:45 02/07/23 03:45 02/07/23 03:30 02/07/23 03:30 02/07/23 03:15 02/07/23 03:15 02/07/23 03:02 02/07/23 03:02 02/07/23 03:00 02/07/23 02:45 02/07/23 02:45 02/07/23 02:30 02/07/23 02:16 02/07/23 02:16 02/07/23 02:00 02/07/23 01:45 02/07/23 01:45 02/07/23 01:30 02/07/23 01:30 02/07/23 01:15 02/07/23 01:15 02/07/23 01:00 02/07/23 01:00 02/07/23 00:45 02/07/23 00:45 02/07/23 00:30 02/07/23 00:30 02/07/23 00:15 02/07/23 00:15 02/07/23 00:00 02/07/23 00:00 02/07/23 00:00 02/06/23 23:45 02/06/23 23:45 02/06/23 23:30 02/06/23 23:30 02/06/23 23:15 02/06/23 23:15 02/06/23 23:07 Mechanical Vent 02/06/23 23:00 02/06/23 23:00 02/06/23 22:45 02/06/23 22:45 02/06/23 22:38 50 02/06/23 22:30 02/06/23 22:30 02/06/23 22:15 02/06/23 22:15 02/06/23 22:00 02/06/23 22:00 02/06/23 21:45 02/06/23 21:45 02/06/23 21:30 02/06/23 21:30 02/06/23 21:15 02/06/23 21:15 02/06/23 21:13 02/06/23 21:13 02/06/23 21:06 02/06/23 21:06 02/06/23 21:00 02/06/23 21:00 02/06/23 20:58 02/06/23 20:58 02/06/23 20:52 02/06/23 20:52 02/06/23 20:45 02/06/23 20:45 02/06/23 20:30 02/06/23 20:30 02/06/23 20:00 02/06/23 20:00 02/06/23 20:00 Laboratory Results 02/07/23 03:31 02/07/23 03:31 Coding Level of Care Code 24993 CRITICAL CARE 1ST 30-74M Diagnoses Metabolic encephalopathy G93.41 COPD (chronic obstructive pulmonary disease) J44.9 Acute respiratory failure J96.00 Multifocal pneumonia J18.9
[2023-02-07] MEDS: OSELTAMIVIR PHOSPHATE SUSP 30 MG/5 ML UDP PO SCH (08:09)
[2023-02-07] MEDS ORDERED: LANTUS PER UNIT CHARGE SQ ONE ×2 (08:15→21:00)
[2023-02-07 08:28] LABS: Thyroid Stimulating Hormone 0.411 uIu/ml (0.300-4.500)
[2023-02-07] MEDS ORDERED: LANSOPRAZOLE 30 MG SOLTAB PO SCH (09:00)
--- NOTE | 2023-02-07 09:04 | Pharmacy Report ---
Pharmacy Glycemic Short Note 2 - Date of Service February 07, 2023 - Glycemic Short BSG Results (Last 24 hours): 02/06/23 02/06/23 02/06/23 11:46 17:29 17:31 Glucose POC Glucose 287 H 330 H* 340 H* 02/06/23 02/06/23 02/06/23 17:50 18:46 20:01 Glucose 327 H* POC Glucose 305 H* 252 H 02/06/23 02/06/23 02/06/23 20:58 21:56 22:50 Glucose POC Glucose 239 H 210 H 200 H 02/07/23 02/07/23 02/07/23 00:51 02:48 03:31 Glucose 172 H POC Glucose 200 H 178 H 02/07/23 02/07/23 06:50 07:46 Glucose POC Glucose 162 H 149 H OUTPATIENT ANTIDIABETIC REGIMEN: * Levemir 25 units SQ Daily * NovoLog 18 units with meals + SSI * Metformin 500mg PO BID ASSESSMENT: * 62-year-old female critically ill, metabolic encephalopathy, non-anion gap metabolic acidosis. Transferred to the ICU for respiratory distress. * Past medical history: uncontrolled T2DM, HTN, dyslipidemia, borderline anxiety disorder, bipolar disorder, hep C opioid dependence, SONI, history of PE. * Insulin drip running at 2.5units/hr - received 39 units of Lantus yesterday while on insulin drip. * Will give Lantus now to overlap with drip and transition to SQ insulin * Remains on hydrocortisone 50mg IV Q8H, Tamiflu, doxycycline. Just started on Peptamen tube feeds, Peptamen 1.5 jaci = 184 g CHO/L, which provides the flowin mL/hr = 15 g CHO q4h 30 mL/hr = 22 g CHO q4h 40 mL/hr = 29 g CHO q4h 50 mL/hr = 37 g CHO q4h 60 mL/hr = 44 g CHO q4h 70 mL/hr = 52 g CHO q4h PLAN FOR INPATIENT GLYCEMIC CONTROL: * Hold outpatient diabetes medications * IV insulin infusion, goal range 110-180mg/dl, running at 2.5 units/hr * DC at 1000 * Basal insulin * Lantus 30 units SQ x 1 dose now, overlap with insulin drip, then 0-25 units HS based on BSG * Bolus insulin * NovoLog per scale Q4H * Goal Range: Low 110 mg/dL - High 140 mg/dL * Correction Factor: 15 mg/dL/unit * Nutritional / Prandial insulin per carb ratio of 1 unit per 6 grams CHO consumed in Peptamen tube feeds
[2023-02-07 09:25] LABS: Amphetamines+Metham, Urine Neg (Neg); Barbiturates, Urine Neg (Neg); Benzodiazepine, Urine Pos (Neg); Cocaine, Urine Pos (Neg); MDMA (Ecstacy), Urine Pos (Neg); Marijuana, Urine Pos (Neg); Methadone, Urine Neg (Neg); Opiate, Urine Neg (Neg); Phencyclidine, Urine Neg (Neg)
[2023-02-07 09:43] LABS: Chloride Random Urine 50 mmol/L; Potassium Random Urine 62.7 mmol/L; Sodium Random Urine < 10 mmol/L
[2023-02-07 09:51] LABS: Creatinine Urine Random 76.8 mg/dl
[2023-02-07] MEDS ORDERED: PEPTAMEN 1.5 CAL 1,000 ML BAG OG SCH (11:15)
[2023-02-07] MEDS ORDERED: INSULIN ASPART PER UNIT CHARGE SC SCH (11:30)
[2023-02-07] MEDS: LANSOPRAZOLE 30 MG SOLTAB OG SCH (11:51)
[2023-02-07] MEDS: TUBE FEEDING WATER FLUSH OG SCH ×4 (11:57→23:41)
[2023-02-07] MEDS: DOXYCYCLINE HYCLATE 100 MG in DEXTROSE 5% MINI-B 100 ML IV SCH ×2 (12:01→23:46)
[2023-02-07 12:03] LABS: Hematocrit (blood only) 25.8 % (37.0-47.0); Hemoglobin 8.7 g/dl (12.0-16.0)
[2023-02-07 12:18] LABS: BUN Creatinine Ratio 22.6 (10-20); Calcium 7.7 mg/dl (8.6-10.3); Creatinine Clr Calc Pharmacy 83.3 ml/min; Est GFR (African American) 113.6 ml/min; Potassium 3.7 mmol/L (3.5-5.1)
[2023-02-07 12:39] LABS: Acetaminophen < 3 ug/ml (10-30); Salicylate < 3.0 mg/dl (3.0-30)
[2023-02-07] MEDS: CLOPIDOGREL BISULFATE 75 MG TAB PO SCH (13:15)
[2023-02-07] MEDS: POTASSIUM CHLORIDE / WTR 20 MEQ/100 ML PLCT IV SCH ×2 (13:46→16:00)
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
[2023-02-07] MEDS: fentaNYL citrate 2,500 MCG/250 ML BAG IV SCH (21:51)
[2023-02-07] MEDS: ATORVASTATIN 40 MG TAB PO SCH (22:05)
[2023-02-07] MEDS: OSELTAMIVIR PHOSPHATE SUSP 75 MG/12.5 ML UDP PO SCH (22:06)
[2023-02-08] MEDS: HYDROCORTISONE SOD 50 MG in SYRINGE 0 ML IV SCH ×2 (01:51→13:02)
[2023-02-08] MEDS: CEFEPIME 2,000 MG in SYRINGE 0 ML IV SCH ×2 (01:51→10:01)
[2023-02-08] MEDS: TUBE FEEDING WATER FLUSH OG SCH ×3 (02:45→10:08)
[2023-02-08] MEDS: fentaNYL citrate 2,500 MCG/250 ML BAG IV SCH (02:45)
[2023-02-08] MEDS: INSULIN ASPART PER UNIT CHARGE SC SCH ×5 (03:37→20:16)
[2023-02-08] MEDS: propofoL 1,000 MG/100 ML VIAL IV SCH (05:07)
[2023-02-08] MEDS: LEVOTHYROXINE SODIUM 100 MCG TABLET PO SCH (05:08)
[2023-02-08] MEDS: LEVOTHYROXINE SODIUM 25 MCG TABLET PO SCH (05:08)
[2023-02-08 05:18] LABS: Hematocrit (blood only) 26.2 % (37.0-47.0); Hemoglobin 8.6 g/dl (12.0-16.0); Mean Corpuscular Hemoglobin 24.6 pg (25.0-34.0); Mean Corpuscular Hgb Conc 32.8 g/dL (32.0-36.0); Mean Corpuscular Volume 75.1 fL (80.0-100.0); Mean Platelet Volume 8.8 fL (9.4-12.4); Platelet Count 240 K/uL (130-400); RDW Coefficient of Variation 12.1 % (11.5-14.5); RDW Standard Deviation 33.2 fL (36.4-46.3); Red Blood Count 3.49 M/uL (4.20-5.40); White Blood Count 9.56 K/ul (4.8-10.8)
[2023-02-08 05:29] LABS: Calcium 7.6 mg/dl (8.6-10.3); Creatinine Clr Calc Pharmacy 88.9 ml/min; Est GFR (African American) 116.1 ml/min; Est GFR (Non-African American) 100.2 ml/min; Magnesium 1.9 mg/dl (1.7-2.4); Phosphorus 1.3 mg/dl (2.5-4.9); Potassium 3.6 mmol/L (3.5-5.1)
[2023-02-08] MEDS ORDERED: POTASSIUM PHOS 3 MMOL/1 ML INFUSION IV STA (06:16)
[2023-02-08] MEDS ORDERED: POTASSIUM PHOSPHATE 21 MMOL in SODIUM CHLORIDE 0.9% 500 ML IV ONE (06:30)
[2023-02-08] MEDS ORDERED: MAGNESIUM SULFATE / D5W 1 GM/100 ML BAG IV ONE (06:30)
[2023-02-08] MEDS ORDERED: LANTUS PER UNIT CHARGE SQ SCH ×2 (08:00→21:00)
[2023-02-08] MEDS: LANSOPRAZOLE 30 MG SOLTAB OG SCH (08:24)
[2023-02-08] MEDS: CLOPIDOGREL BISULFATE 75 MG TAB PO SCH (08:24)
[2023-02-08] MEDS: OSELTAMIVIR PHOSPHATE SUSP 75 MG/12.5 ML UDP PO SCH ×2 (08:25→20:19)
[2023-02-08 08:52] LABS: iSTAT Arterial Blood Gas HCO3 16 meg/L (19-24); iSTAT Arterial Blood Gas pCO2 29 mmHg (35-46); iSTAT Arterial Blood Gas pH 7.35 (7.35-7.45); iSTAT Arterial Blood Gas pO2 91 mmHg (80-95); iSTAT Carbon Dioxide 16 mmol/L (24-31); iSTAT Hematocrit 24 % (37-47); iSTAT Hemoglobin 8.2 g/dl (12.0-16.0); iSTAT Sodium 137 mmol/L (135-144)
[2023-02-08 08:52] LABS: iSTAT Arterial Blood Gas HCO3 16 meg/L (19-24); iSTAT Arterial Blood Gas pCO2 34 mmHg (35-46); iSTAT Arterial Blood Gas pH 7.29 (7.35-7.45); iSTAT Arterial Blood Gas pO2 80 mmHg (80-95); iSTAT Carbon Dioxide 17 mmol/L (24-31); iSTAT Hematocrit 29 % (37-47); iSTAT Hemoglobin 9.9 g/dl (12.0-16.0); iSTAT Potassium 3.6 mmol/L (3.3-5.0); iSTAT Sodium 132 mmol/L (135-144)
[2023-02-08 08:53] LABS: iSTAT Arterial Blood Gas HCO3 16 meg/L (19-24); iSTAT Arterial Blood Gas pCO2 27 mmHg (35-46); iSTAT Arterial Blood Gas pH 7.38 (7.35-7.45); iSTAT Arterial Blood Gas pO2 113 mmHg (80-95); iSTAT Carbon Dioxide 17 mmol/L (24-31); iSTAT Hematocrit 24 % (37-47); iSTAT Hemoglobin 8.2 g/dl (12.0-16.0); iSTAT Potassium 3.6 mmol/L (3.3-5.0); iSTAT Sodium 138 mmol/L (135-144)
--- NOTE | 2023-02-08 09:16 | Critical Care Progress Note ---
Date of Service February 08, 2023 Assessment & Plan (1) Metabolic encephalopathy: (2) COPD (chronic obstructive pulmonary disease): (3) Acute respiratory failure: (4) Multifocal pneumonia: Plan Reason Critically Ill: 62-year-old female admitted to the hospital for increased confusion and lethargy. Transferred to the ICU for respiratory distress Past medical history: Diabetes, hypertension, dyslipidemia, borderline anxiety disorder, bipolar disorder, hep C opioid dependence, SONI, history of PE Neuro - [facility]: Negative --Metabolic encephalopathy/acute psychosis/agitated delirium Multifactorial - Prior records indicate a history of polysubstance abuse in recent past -History of bipolar disorder and borderline personality disorder per records -Zyprexa 5 mg IM now for acute agitation following extubation -Mitten restraints secondary to patient attempting to remove central venous access -Dexmedetomidine as patient is yelling in room --Bipolar disorder with anxiety - Cymbalta 30mg po daily: Restart if patient will comply with taking oral medications - Seroquel 25 mg BID. Restart if patient will comply with taking oral medications UDS positive for cocaine, opioids, ecstasy as well as marijuana on 02/07/2023 Cardiac - --Shock --> resolved --History of hypertension On lisinopril and amlodipine, restart when able to safely take orals Respiratory - -- VDRF Influenza A multilobar pneumonia -Scant normal paula seen on sputum -Continue Tamiflu Liberated from ventilator today -Cefepime day 3, given improvement in radiograph and normal paula will discontinue cefepime -Doxycycline day 3, to continue for possible underlying structural disea se/questionable COPD as listed in problem list on [facility] CT chest 02/05/2023: Multilobar pneumonia appreciated bilaterally affecting the upper as well as lower lobes Most dense consolidative processes in the right lower lobe as well as the inferior lobe of the lingula Mild mediastinal lymphadenopathy --POssible History of pulmonary emboli: per 02/05/23 [facility] documentation -Not on any anticoagulation, no characteristics regarding PE diagnosis which was handwritten on [facility] notes, no additional information/anticoagulation found in additional notes -No additional documentation noted in limited [facility] records, patient unable to participate in history taking GI - -- Hepatitis C History of opioid use -Hepatitis C serology pending RENAL/LYTES - -- Non-anion gap metabolic acidosis: Resolved ENDO - -- Diabetes type 2 Continue with ICU hyperglycemia protocol --Hypothyroidism On 125 mcg of levothyroxine at home -Restart when taking p.o. TSH 0.4 HEME - -- Microcytic anemia Monitor H&H -Reticulocyte count and iron levels in a.m. ID - -- Multilobar pneumonia Procalcitonin 21.53 Nasal MRSA negative Respiratory bio fire negative for everything except for influenza A -Empiric doxycycline for possible structural lung disease in the setting of multilobar pneumonia --Prophylaxis VTE: Lovenox GI: Pantoprazole Lines: Right IJ, positive Elliott, Diet: If able to pass bedside swallow would consider initiation of diet I have personally spent 45 minutes of critical care time in the direct management of this patient. This is a life/limb threatening event. This includes time spent evaluating patient, direct bedside care, chart review, placing orders, interpretation of diagnostic studies, discussion with consultants, patient, and family members, as well as other required patient management activities. This time is exclusive of all separately billable procedures, and teaching time and separate from and in addition to any other critical care service time. Admission and Anticipated Discharge Date Admission Date: February 05, 2023 Subjective No overnight events Physical Exam Physical Exam: General: Sedated. nontoxic. Skin: Warm, dry, Head: Atraumatic Ears, nose, mouth and throat: airway obscured by endotracheal tube Cardiovascular: Normal peripheral perfusion Respiratory: Ventilator settings reviewed Gastrointestinal: Non distended Musculoskeletal: No deformity Results & Data Results & Data Vital Signs (Past 12 Hours) Vital Signs Temp Pulse Resp BP Pulse Ox Pulse Ox O2 Del Method 02/08/23 08:33 83 26 H 95 02/08/23 08:15 72 21 99 02/08/23 06:00 69 18 123/76 99 Mechanical Vent 02/08/23 05:30 71 18 115/73 98 Mechanical Vent 02/08/23 05:00 86 23 155/94 H 98 Mechanical Vent 02/08/23 04:30 69 18 120/75 98 Mechanical Vent 02/08/23 04:00 37 C 71 20 126/80 100 Mechanical Vent 02/08/23 04:00 02/08/23 03:30 72 20 122/74 99 Mechanical Vent 02/08/23 03:15 67 20 100 02/08/23 03:00 72 21 117/75 98 Mechanical Vent 02/08/23 02:30 66 20 123/79 99 Mechanical Vent 02/08/23 02:00 67 20 141/85 H 100 Mechanical Vent 02/08/23 01:30 74 20 143/89 H 100 Mechanical Vent 02/08/23 01:00 67 20 133/82 99 Mechanical Vent 02/08/23 00:30 69 20 148/91 H 100 Mechanical Vent 02/08/23 00:00 36.8 C 67 20 145/86 H 100 Mechanical Vent 02/08/23 00:00 02/07/23 23:41 78 22 99 02/07/23 23:30 71 20 115/75 99 Mechanical Vent 02/07/23 23:00 70 20 122/81 99 Mechanical Vent 02/07/23 23:00 99 02/07/23 22:30 80 20 128/88 99 Mechanical Vent 02/07/23 22:00 72 20 130/84 99 Mechanical Vent 02/07/23 21:30 83 22 100 Mechanical Vent O2 Del Method FiO2 02/08/23 08:33 30 02/08/23 08:15 30 02/08/23 06:00 30 02/08/23 05:30 30 02/08/23 05:00 40 02/08/23 04:30 60 02/08/23 04:00 60 02/08/23 04:00 30 02/08/23 03:30 40 02/08/23 03:15 40 02/08/23 03:00 40 02/08/23 02:30 40 02/08/23 02:00 40 02/08/23 01:30 40 02/08/23 01:00 40 02/08/23 00:30 40 02/08/23 00:00 40 02/08/23 00:00 40 02/07/23 23:41 40 02/07/23 23:30 40 02/07/23 23:00 40 02/07/23 23:00 Mechanical Vent 02/07/23 22:30 40 02/07/23 22:00 40 02/07/23 21:30 40 Critical Care Results & Data Vital Signs (Past 12 Hours) Vital Signs Temp Pulse Resp BP Pulse Ox Pulse Ox O2 Del Method 02/08/23 08:33 83 26 H 95 02/08/23 08:15 72 21 99 02/08/23 06:00 69 18 123/76 99 Mechanical Vent 02/08/23 05:30 71 18 115/73 98 Mechanical Vent 02/08/23 05:00 86 23 155/94 H 98 Mechanical Vent 02/08/23 04:30 69 18 120/75 98 Mechanical Vent 02/08/23 04:00 37 C 71 20 126/80 100 Mechanical Vent 02/08/23 04:00 02/08/23 03:30 72 20 122/74 99 Mechanical Vent 02/08/23 03:15 67 20 100 02/08/23 03:00 72 21 117/75 98 Mechanical Vent 02/08/23 02:30 66 20 123/79 99 Mechanical Vent 02/08/23 02:00 67 20 141/85 H 100 Mechanical Vent 02/08/23 01:30 74 20 143/89 H 100 Mechanical Vent 02/08/23 01:00 67 20 133/82 99 Mechanical Vent 02/08/23 00:30 69 20 148/91 H 100 Mechanical Vent 02/08/23 00:00 36.8 C 67 20 145/86 H 100 Mechanical Vent 02/08/23 00:00 02/07/23 23:41 78 22 99 02/07/23 23:30 71 20 115/75 99 Mechanical Vent 02/07/23 23:00 70 20 122/81 99 Mechanical Vent 02/07/23 23:00 99 02/07/23 22:30 80 20 128/88 99 Mechanical Vent O2 Del Method FiO2 02/08/23 08:33 30 02/08/23 08:15 30 02/08/23 06:00 30 02/08/23 05:30 30 02/08/23 05:00 40 02/08/23 04:30 60 02/08/23 04:00 60 02/08/23 04:00 30 02/08/23 03:30 40 02/08/23 03:15 40 02/08/23 03:00 40 02/08/23 02:30 40 02/08/23 02:00 40 02/08/23 01:30 40 02/08/23 01:00 40 02/08/23 00:30 40 02/08/23 00:00 40 02/08/23 00:00 40 02/07/23 23:41 40 02/07/23 23:30 40 02/07/23 23:00 40 02/07/23 23:00 Mechanical Vent 02/07/23 22:30 40 Lab & Micro Results (Past 24 Hours) RBC 3.49 M/uL (4.20-5.40) L 02/08/23 WBC 9.56 K/ul (4.8-10.8) 02/08/23 Hgb 8.6 g/dl (12.0-16.0) L 02/08/23 Hct 26.2 % (37.0-47.0) L 02/08/23 MCV 75.1 fL (80.0-100.0) L 02/08/23 MCH 24.6 pg (25.0-34.0) L 02/08/23 MCHC 32.8 g/dL (32.0-36.0) 02/08/23 RDW Standard Deviation 33.2 fL (36.4-46.3) L 02/08/23 RDW Coefficient of Variation 12.1 % (11.5-14.5) 02/08/23 Plt Count 240 K/uL (130-400) 02/08/23 MPV 8.8 fL (9.4-12.4) L 02/08/23 Na 137 mmol/L (136-145) 02/08/23 K 3.6 mmol/L (3.5-5.1) 02/08/23 Cl 112 mmol/L (98-107) H 02/08/23 CO2 20 mmol/L (21-32) L 02/08/23 Anion Gap 5 (3-11) 02/08/23 BUN 11 mg/dl (6-23) 02/08/23 Creatinine 0.58 mg/dl (0.6-1.2) L 02/08/23 Estimated GFR ( Amer) 116.1 ml/min 02/08/23 Estimated GFR (Non-Af Amer) 100.2 ml/min 02/08/23 BUN/Creatinine Ratio 19.0 (10-20) 02/08/23 Glu 142 mg/dl (70-99(Fasting)) H 02/08/23 Ca 7.6 mg/dl (8.6-10.3) L 02/08/23 Phosphorus Level 1.3 mg/dl (2.5-4.9) L* 02/08/23 Mg 1.9 mg/dl (1.7-2.4) 02/08/23 04:55 Calcium Level 7.6 mg/dl (8.6-10.3) L 02/08/23 04:55 Ionized Calcium 1.18 mmol/L (1.12-1.32) 02/08/23 09:43 Microbiology 02/06/23 Unknown Gram Stain - Final Sputum, Expectorated Sputum Culture - Final Scant normal paula. 02/05/23 15:56 Aerobic Blood Culture - Preliminary Blood No growth in Aerobic bottle after 48 hours. Anaerobic Blood Culture - Preliminary No growth in Anaerobic bottle after 48 hours. 02/05/23 16:02 Aerobic Blood Culture - Preliminary Blood No growth in Aerobic bottle after 48 hours. Anaerobic Blood Culture - Preliminary No growth in Anaerobic bottle after 48 hours. 02/05/23 Unknown Urine Culture - Final Urine,Straight Cath Three types of organisms present, all low counts probable skin paula. No further identifications or sensitivities to follow. I & O Totals 24 Hours 02/07/23 02/08/23 02/09/23 06:59 06:59 06:59 Intake Total 4375.012 / 4375.012 1694.835 / 1694.835 226.753 / 226.753 Output Total 2900 / 2900 1190 / 1190 Balance 1475.012 / 1475.012 504.835 / 504.835 226.753 / 226.753 Cumulative 02/05/23 15:06 thru 02/08/23 08:32 Intake Total 9631.600 Output Total 5090 Balance 4541.600 RT Ventilator Mngmt (Last Documented) Ventilator Ordered Settings Ventilator Support Mode CPAP 02/08/23 08:33 Respiratory Rate 26 02/08/23 08:33 Ventilator Tidal Volume 400 02/08/23 08:15 Setting Minute Ventilation 13.8 02/08/23 08:33 Ventilator Positive Pressure 10 02/08/23 08:33 Support Setting Positive End Expiratory 5 02/08/23 08:33 Pressure Fraction of Inspired Oxygen 30 02/08/23 08:33 Machine Comment placed on CPAP 11/12 30% 02/08/23 08:15 Ventilator - PT Measurements Respiratory Rate 26 Exhaled Tidal Volume 574 Minute Ventilation 13.8 Peak Inspiratory Airway 16 Pressure Plateau Pressure 13 Respiratory Cycle Inspiratory: 1:2.8 Expiratory Ratio Inspiratory Phase Time 0.98 End-Tidal CO2 26 Static Lung Compliance 64.00 Dynamic Lung Compliance 52.18 Normal Static Lung Compliance 49.00 Patient Measurements Comment Patient extubated to 3L,SPO2 94% Coding Level of Care Code 11507 CRITICAL CARE 1ST 30-74M Diagnoses Metabolic encephalopathy G93.41 COPD (chronic obstructive pulmonary disease) J44.9 Acute respiratory failure J96.00 Multifocal pneumonia J18.9
[2023-02-08] MEDS ORDERED: STAT IV Infusion **Titration per Protocol STA (09:37)
[2023-02-08] MEDS ORDERED: OLANZapine 10 MG/2.1 ML SDV IM STA (09:54)
[2023-02-08] MEDS: dexMEDEtomidine 200 MCG/50 ML BAG IV SCH ×8 (09:59→23:58)
[2023-02-08] MEDS: DOXYCYCLINE HYCLATE 100 MG in DEXTROSE 5% MINI-B 100 ML IV SCH (12:54)
--- NOTE | 2023-02-08 13:48 | Pharmacy Report ---
Pharmacy Glycemic Short Note 2 - Date of Service February 08, 2023 - Glycemic Short BSG Results (Last 24 hours): 02/07/23 02/07/23 02/07/23 15:54 20:16 23:44 Glucose POC Glucose 136 H 170 H 192 H 02/08/23 02/08/23 02/08/23 03:31 04:55 08:17 Glucose 142 H POC Glucose 170 H 182 H 02/08/23 12:57 Glucose POC Glucose 90 OUTPATIENT ANTIDIABETIC REGIMEN: * Levemir 25 units SQ Daily * NovoLog 18 units with meals + SSI * Metformin 500mg PO BID HbA1c: 11.5% (02/06/23) ASSESSMENT: 02/08/23: * BSGs reasonably controlled yesterday with 62 units of insulin (45 units of basal and 17 units of prandial/correctional bolus) * Patient receiving Peptamen yesterday, covered with Novolog * Extubated this morning and OGT removed, patient agitated and confused. Precedex initiated. * Patient already received 20 units of basal insulin this morning. Will reduce ongoing basal given uncertainty in PO intake. NPO at this time. * Continues on hydrocortisone 50 mg IV q12h 02/07/23: * 62-year-old female critically ill, metabolic encephalopathy, non-anion gap metabolic acidosis. Transferred to the ICU for respiratory distress. * Past medical history: uncontrolled T2DM, HTN, dyslipidemia, borderline anxiety disorder, bipolar disorder, hep C opioid dependence, SONI, history of PE. * Insulin drip running at 2.5units/hr - received 39 units of Lantus yesterday while on insulin drip. * Will give Lantus now to overlap with drip and transition to SQ insulin * Remains on hydrocortisone 50mg IV Q8H, Tamiflu, doxycycline. Just started on Peptamen tube feeds, Peptamen 1.5 jaci = 184 g CHO/L, which provides the flowin mL/hr = 15 g CHO q4h 30 mL/hr = 22 g CHO q4h 40 mL/hr = 29 g CHO q4h 50 mL/hr = 37 g CHO q4h 60 mL/hr = 44 g CHO q4h 70 mL/hr = 52 g CHO q4h PLAN FOR INPATIENT GLYCEMIC CONTROL: * Hold outpatient diabetes medications * Basal insulin - decrease * Lantus 20 units SC x 1 this morning * Lantus 0-5-10 units SC HS (see EHR for details) * Bolus insulin - loosen * NovoLog per scale Q6H * Goal Range: Low 110 mg/dL - High 140 mg/dL * Correction Factor: 25 mg/dL/unit * Nutritional / Prandial insulin per carb ratio of 1 unit per 8 grams CHO consumed
--- NOTE | 2023-02-08 14:48 | Electrocardiogram Report ---
Test Reason : Blood Pressure : / mmHG Vent. Rate : 076 BPM Atrial Rate : 076 BPM P-R Int : 140 ms QRS Dur : 080 ms QT Int : 384 ms P-R-T Axes : 056 -20 026 degrees QTc Int : 432 ms Normal sinus rhythm Normal ECG When compared with ECG of 05-FEB-2023 16:04, No significant change was found Confirmed by Nilton Beck ([id number] on 02/08/2023 2:47:43 PM Referred By: Jocelin Emerson Confirmed By:Nilton Beck
[2023-02-08] MEDS: amLODIPine BESYLATE 5 MG TAB PO SCH ×2 (15:22→15:27)
[2023-02-08] MEDS ORDERED: HALOPERIDOL LACTATE 5 MG/ML 1 ML VIAL IV STA ×2 (15:54→21:58)
[2023-02-08] MEDS ORDERED: HALOPERIDOL LACTATE 5 MG/ML 1 ML VIAL ONE (15:59)
[2023-02-08] MEDS ORDERED: Nursing to Pharmacy Communication SCH (16:45)
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
--- NOTE | 2023-02-08 17:40 | Communication Note ---
Date of Service: February 08, 2023 I came to see pt at 1710 hoping that, now that she's been extubated, I might be able to assess her. Her nurse reports that pt has been yelling and confused most of the day despite maximal doses of dexmedetomidine until she got some haloperidol recently. Following that, she's been much more pleasant but still very confused. Pt responded to her name but could tell me only her first name. She said we were in [facility] in [facility] but is at a loss to say why she might be here. She is unable to guess at the year or name any days of the week. The interview is characterized by her marked difficulty remaining awake for more than a few moments. Curiously, her nurse tried calling the home phone number pt provided to her earlier, which she said matched what was in her records. She tells me that this number turned out to be for a casino. I'll be very curious to learn more about this. We will keep checking in with pt until we're able to complete an assessment. At this point, it's fair to say that pt is completely incapable of providing informed consent about medical issues including whether to remain hospitalized.
[2023-02-08] MEDS ORDERED: INSULIN ASPART PER UNIT CHARGE SC SCH ×2 (18:00)
[2023-02-08] MEDS ORDERED: LORazepam 1 MG in SYRINGE 0.5 ML IV STA (19:13)
[2023-02-08] MEDS: ATORVASTATIN 40 MG TAB PO SCH (20:18)
[2023-02-08] MEDS: QUEtiapine FUMARATE 25 MG TABLET PO SCH (20:19)
[2023-02-09] MEDS: DOXYCYCLINE HYCLATE 100 MG in DEXTROSE 5% MINI-B 100 ML IV SCH (01:10)
[2023-02-09] MEDS: LORazepam 1 MG in SYRINGE 0.5 ML IV PRN ×2 (01:55→08:29)
[2023-02-09] MEDS: dexMEDEtomidine 200 MCG/50 ML BAG IV SCH ×5 (02:23→06:14)
[2023-02-09 05:12] LABS: Hematocrit (blood only) 29.4 % (37.0-47.0); Hemoglobin 10.2 g/dl (12.0-16.0); Mean Corpuscular Hemoglobin 25.2 pg (25.0-34.0); Mean Corpuscular Hgb Conc 34.7 g/dL (32.0-36.0); Mean Corpuscular Volume 72.6 fL (80.0-100.0); Mean Platelet Volume 8.9 fL (9.4-12.4); Platelet Count 310 K/uL (130-400); RDW Coefficient of Variation 12.1 % (11.5-14.5); RDW Standard Deviation 31.8 fL (36.4-46.3); Red Blood Count 4.05 M/uL (4.20-5.40); Reticulocytes # 0.04 10^6/uL (0.02-0.10)
[2023-02-09] MEDS: ENOXAPARIN INJ 40 MG/0.4 ML SYR SQ SCH (05:58)
[2023-02-09] MEDS: LEVOTHYROXINE SODIUM 25 MCG TABLET PO SCH (05:59)
[2023-02-09] MEDS: LEVOTHYROXINE SODIUM 100 MCG TABLET PO SCH (05:59)
[2023-02-09 06:38] LABS: Calcium 7.6 mg/dl (8.6-10.3); Creatinine Clr Calc Pharmacy 101.6 ml/min; Est GFR (African American) 121.9 ml/min; Est GFR (Non-African American) 105.2 ml/min; Magnesium 1.3 mg/dl (1.7-2.4); Phosphorus 1.6 mg/dl (2.5-4.9); Potassium 2.5 mmol/L (3.5-5.1)
[2023-02-09] MEDS ORDERED: POTASSIUM CHLORIDE CRTAB 20 MEQ TABCR PO STA (06:39)
[2023-02-09] MEDS ORDERED: POTASSIUM PHOS 3 MMOL/1 ML INFUSION IV STA (06:39)
[2023-02-09] MEDS: MAGNESIUM SULFATE / D5W 1 GM/100 ML BAG IV SCH ×4 (06:49→12:35)
[2023-02-09] MEDS ORDERED: POTASSIUM PHOSPHATE 40 MMOL in SODIUM CHLORIDE 0.9% 1,000 ML IV ONE (07:00)
[2023-02-09] MEDS ORDERED: LANTUS PER UNIT CHARGE SC ONE (07:45)
[2023-02-09] MEDS: QUEtiapine FUMARATE 25 MG TABLET PO SCH (08:33)
[2023-02-09] MEDS: amLODIPine BESYLATE 5 MG TAB PO SCH (08:33)
[2023-02-09] MEDS: CLOPIDOGREL BISULFATE 75 MG TAB PO SCH (08:33)
[2023-02-09] MEDS: DULoxetine HCL 30 MG CAP PO SCH (08:33)
[2023-02-09] MEDS: LANSOPRAZOLE 30 MG SOLTAB OG SCH (08:33)
[2023-02-09] MEDS ORDERED: HALOPERIDOL LACTATE 5 MG/ML 1 ML VIAL IV STA ×2 (08:38→10:01)
[2023-02-09] MEDS ORDERED: HALOPERIDOL LACTATE 5 MG/ML 1 ML VIAL ONE (08:39)
[2023-02-09] MEDS: INSULIN ASPART PER UNIT CHARGE SC SCH ×4 (08:40→20:42)
--- NOTE | 2023-02-09 08:58 | Pharmacy Report ---
Pharmacy Glycemic Short Note 2 - Date of Service February 09, 2023 - Glycemic Short BSG Results (Last 24 hours): 02/08/23 02/08/23 02/08/23 12:57 16:04 20:06 Glucose POC Glucose 90 94 101 H 02/09/23 02/09/23 02/09/23 04:07 05:55 08:08 Glucose Cancelled 228 H POC Glucose 277 H OUTPATIENT ANTIDIABETIC REGIMEN: * Levemir 25 units SQ Daily * NovoLog 18 units with meals + SSI * Metformin 500mg PO BID HbA1c: 11.5% (02/06/23) ASSESSMENT: 02/09/23: * Ongoing hydrocortisone stopped. Diet ordered yesterday with some CHO intake. BSG's yesterday below goal for ICU patient, but AM fasting above goal. * Will very slightly increase Lantus, up to total daily home basal dose. Hesitant to be more aggressive with steroids stopping. * Will keep Novolog at current parameter for now 2nd elevated AM BSG. However, will loosen at lunch as steroid effects wear off. 02/08/23: * BSGs reasonably controlled yesterday with 62 units of insulin (45 units of basal and 17 units of prandial/correctional bolus) * Patient receiving Peptamen yesterday, covered with Novolog * Extubated this morning and OGT removed, patient agitated and confused. Precedex initiated. * Patient already received 20 units of basal insulin this morning. Will reduce ongoing basal given uncertainty in PO intake. NPO at this time. * Continues on hydrocortisone 50 mg IV q12h 02/07/23: * 62-year-old female critically ill, metabolic encephalopathy, non-anion gap metabolic acidosis. Transferred to the ICU for respiratory distress. * Past medical history: uncontrolled T2DM, HTN, dyslipidemia, borderline anxiety disorder, bipolar disorder, hep C opioid dependence, SONI, history of PE. * Insulin drip running at 2.5units/hr - received 39 units of Lantus yesterday while on insulin drip. * Will give Lantus now to overlap with drip and transition to SQ insulin * Remains on hydrocortisone 50mg IV Q8H, Tamiflu, doxycycline. Just started on Peptamen tube feeds, Peptamen 1.5 jaci = 184 g CHO/L, which provides the flowin mL/hr = 15 g CHO q4h 30 mL/hr = 22 g CHO q4h 40 mL/hr = 29 g CHO q4h 50 mL/hr = 37 g CHO q4h 60 mL/hr = 44 g CHO q4h 70 mL/hr = 52 g CHO q4h PLAN FOR INPATIENT GLYCEMIC CONTROL: * Hold outpatient diabetes medications * Basal insulin - increase * Lantus 25 units SC x 1 this morning * Bolus insulin - loosen * NovoLog per scale Q6H * Goal Range: Low 110 mg/dL - High 140 mg/dL * Correction Factor: 35 mg/dL/unit * Nutritional / Prandial insulin per carb ratio of 1 unit per 11 grams CHO consumed
--- NOTE | 2023-02-09 09:21 | Critical Care Progress Note ---
Date of Service February 09, 2023 Assessment & Plan (1) Metabolic encephalopathy: (2) COPD (chronic obstructive pulmonary disease): (3) Acute respiratory failure: (4) Multifocal pneumonia: Plan Neuro - --Metabolic encephalopathy/acute psychosis/agitated delirium Multifactorial - Prior records indicate a history of polysubstance abuse in recent past -History of bipolar disorder and borderline personality disorder per records -Haldol 5 mg IV for acute agitation -Requested psychiatry consult for assistance with medication management -Nursing staff reports patient had been discharged from [facility], a record indicated that the patient was in [facility] under 201 admission --Bipolar disorder with anxiety - Cymbalta 30mg po daily: Restarted - Seroquel 25 mg BID. restarted UDS positive for cocaine, opioids, ecstasy as well as marijuana on 02/07/2023 Cardiac - --Shock --> resolved --History of hypertension On lisinopril and amlodipine restarted Respiratory - -- VDRF Influenza A multilobar pneumonia: Improved -Scant normal paula seen on sputum -Continue Tamiflu Patient persistently yelling and not hypoxic, I feel her risk of needing reintubation or acute hypoxic respiratory failure is minimal given the amount of respiratory demand she is placed upon herself in the last 24 hours since liberation from the ventilator CT chest 02/05/2023: Multilobar pneumonia appreciated bilaterally affecting the upper as well as lower lobes Most dense consolidative processes in the right lower lobe as well as the inferior lobe of the lingula Mild mediastinal lymphadenopathy --Possible History of pulmonary emboli: per 02/05/23 [facility] documentation -Not on any anticoagulation, no characteristics regarding PE diagnosis which was handwritten on [facility] notes, no additional information/anticoagulation found in additional notes -No additional documentation noted in limited [facility] records, patient unable to participate in history taking GI - -- Hepatitis C History of opioid use -Hepatitis C serology pending RENAL/LYTES - -- Non-anion gap metabolic acidosis: Resolved ENDO - -- Diabetes type 2 Continue with ICU hyperglycemia protocol --Hypothyroidism On 125 mcg of levothyroxine at home: Restarted TSH 0.4 HEME - -- Microcytic anemia: Iron deficiency Monitor H&H -Reticulocyte count within normal limits and iron levels: Relatively low ID - -- Multilobar pneumonia Procalcitonin 21.53 Nasal MRSA negative Respiratory bio fire negative for everything except for influenza A -Empiric doxycycline (oral) possible structural lung disease in the setting of multilobar pneumonia --Prophylaxis VTE: Lovenox GI: Pantoprazole Lines: Right IJ: Discontinue Diet: Patient reported to be aspirating. Food is in the forefront of this patient who does not exhibit good insight into the underlying disease process. I think it is more detrimental to restrict the patient from nutrition then to prevent aspiration at this juncture. Critical care needs have resolved stable for downgrade out of the ICU Admission and Anticipated Discharge Date Admission Date: February 05, 2023 Subjective Patient was taken off Precedex overnight secondary to no apparent effects Physical Exam Physical Exam: General: Alert. nontoxic. Confrontational, yelling and cursing Skin: Warm, dry, Head: Atraumatic Ears, nose, mouth and throat: airway patent Cardiovascular: Normal peripheral perfusion Respiratory: no respiratory distress Gastrointestinal: Non distended Musculoskeletal: No deformity Psych: Not participating in teach back, cannot determine if the patient exhibits insight into underlying disease process. Perseveration about obtaining a drink. Results & Data Results & Data Vital Signs (Past 12 Hours) Vital Signs Temp Pulse Resp BP Pulse Ox Pulse Ox O2 Del Method 02/09/23 06:30 65 27 H 92 Nasal Cannula 02/09/23 06:01 64 28 H 93 Nasal Cannula 02/09/23 06:01 36.8 C 155/86 H 02/09/23 06:00 64 28 H 91 02/09/23 05:30 67 26 H 90 Nasal Cannula 02/09/23 05:00 122/82 02/09/23 05:00 36.7 C 71 17 95 02/09/23 04:30 63 23 94 Nasal Cannula 02/09/23 04:00 72 02/09/23 04:00 64 24 94 02/09/23 04:00 157/87 H 02/09/23 03:30 63 23 92 Nasal Cannula 02/09/23 03:00 158/97 H 93 Nasal Cannula 02/09/23 03:00 63 24 93 Nasal Cannula 02/09/23 02:30 64 26 H 93 Nasal Cannula 02/09/23 02:00 156/87 H 02/09/23 02:00 64 22 96 02/09/23 01:53 126/72 02/09/23 01:53 60 22 95 02/09/23 01:30 62 20 97 02/09/23 01:02 63 21 97 02/09/23 00:30 72 18 93 02/09/23 00:00 164/74 H 02/09/23 00:00 64 21 93 02/08/23 23:30 67 22 94 02/08/23 23:11 140/92 02/08/23 23:11 70 17 92 02/08/23 23:00 69 18 95 02/08/23 23:00 152/87 H 02/08/23 23:00 95 02/08/23 22:30 66 22 95 02/08/23 22:00 174/96 H 02/08/23 22:00 70 24 95 02/08/23 21:30 70 19 92 O2 Del Method O2 Flow Rate O2 Flow Rate 02/09/23 06:30 2 02/09/23 06:01 2 02/09/23 06:01 02/09/23 06:00 02/09/23 05:30 2 02/09/23 05:00 02/09/23 05:00 02/09/23 04:30 2 02/09/23 04:00 02/09/23 04:00 02/09/23 04:00 02/09/23 03:30 2 02/09/23 03:00 2 02/09/23 03:00 2 02/09/23 02:30 2 02/09/23 02:00 02/09/23 02:00 02/09/23 01:53 02/09/23 01:53 02/09/23 01:30 02/09/23 01:02 02/09/23 00:30 02/09/23 00:00 02/09/23 00:00 02/08/23 23:30 02/08/23 23:11 02/08/23 23:11 02/08/23 23:00 02/08/23 23:00 02/08/23 23:00 Nasal Cannula 2 02/08/23 22:30 02/08/23 22:00 02/08/23 22:00 02/08/23 21:30 Critical Care Results & Data Vital Signs (Past 12 Hours) Vital Signs Temp Pulse Resp BP Pulse Ox Pulse Ox O2 Del Method 02/09/23 06:30 65 27 H 92 Nasal Cannula 02/09/23 06:01 64 28 H 93 Nasal Cannula 02/09/23 06:01 36.8 C 155/86 H 02/09/23 06:00 64 28 H 91 02/09/23 05:30 67 26 H 90 Nasal Cannula 02/09/23 05:00 122/82 02/09/23 05:00 36.7 C 71 17 95 02/09/23 04:30 63 23 94 Nasal Cannula 02/09/23 04:00 72 02/09/23 04:00 64 24 94 02/09/23 04:00 157/87 H 02/09/23 03:30 63 23 92 Nasal Cannula 02/09/23 03:00 158/97 H 93 Nasal Cannula 02/09/23 03:00 63 24 93 Nasal Cannula 02/09/23 02:30 64 26 H 93 Nasal Cannula 02/09/23 02:00 156/87 H 02/09/23 02:00 64 22 96 02/09/23 01:53 126/72 02/09/23 01:53 60 22 95 02/09/23 01:30 62 20 97 02/09/23 01:02 63 21 97 02/09/23 00:30 72 18 93 02/09/23 00:00 164/74 H 02/09/23 00:00 64 21 93 02/08/23 23:30 67 22 94 02/08/23 23:11 140/92 02/08/23 23:11 70 17 92 02/08/23 23:00 69 18 95 02/08/23 23:00 152/87 H 02/08/23 23:00 95 02/08/23 22:30 66 22 95 02/08/23 22:00 174/96 H 02/08/23 22:00 70 24 95 02/08/23 21:30 70 19 92 O2 Del Method O2 Flow Rate O2 Flow Rate 02/09/23 06:30 2 02/09/23 06:01 2 02/09/23 06:01 02/09/23 06:00 02/09/23 05:30 2 02/09/23 05:00 02/09/23 05:00 02/09/23 04:30 2 02/09/23 04:00 02/09/23 04:00 02/09/23 04:00 02/09/23 03:30 2 02/09/23 03:00 2 01/02/24 03:00 2 02/09/23 02:30 2 02/09/23 02:00 02/09/23 02:00 02/09/23 01:53 02/09/23 01:53 02/09/23 01:30 02/09/23 01:02 02/09/23 00:30 02/09/23 00:00 02/09/23 00:00 02/08/23 23:30 02/08/23 23:11 02/08/23 23:11 02/08/23 23:00 02/08/23 23:00 02/08/23 23:00 Nasal Cannula 2 02/08/23 22:30 02/08/23 22:00 02/08/23 22:00 02/08/23 21:30 Lab & Micro Results (Past 24 Hours) RBC 4.05 M/uL (4.20-5.40) L 02/09/23 WBC 10.70 K/ul (4.8-10.8) 02/09/23 Hgb 10.2 g/dl (12.0-16.0) L 02/09/23 Hct 29.4 % (37.0-47.0) L 02/09/23 MCV 72.6 fL (80.0-100.0) L 02/09/23 MCH 25.2 pg (25.0-34.0) 02/09/23 MCHC 34.7 g/dL (32.0-36.0) 02/09/23 RDW Standard Deviation 31.8 fL (36.4-46.3) L 02/09/23 RDW Coefficient of Variation 12.1 % (11.5-14.5) 02/09/23 Plt Count 310 K/uL (130-400) 02/09/23 MPV 8.9 fL (9.4-12.4) L 02/09/23 Na 137 mmol/L (136-145) 02/09/23 K 2.5 mmol/L (3.5-5.1) L* 02/09/23 Cl 103 mmol/L (98-107) 02/09/23 CO2 25 mmol/L (21-32) 02/09/23 Anion Gap 9 (3-11) 02/09/23 BUN 7 mg/dl (6-23) 02/09/23 Creatinine 0.50 mg/dl (0.6-1.2) L 02/09/23 Estimated GFR ( Amer) 121.9 ml/min 02/09/23 Estimated GFR (Non-Af Amer) 105.2 ml/min 02/09/23 BUN/Creatinine Ratio 14.0 (10-20) 02/09/23 Glu 228 mg/dl (70-99(Fasting)) H 02/09/23 Ca 7.6 mg/dl (8.6-10.3) L 02/09/23 Phosphorus Level 1.6 mg/dl (2.5-4.9) L 02/09/23 Mg 1.3 mg/dl (1.7-2.4) L 02/09/23 05:55 Calcium Level 7.6 mg/dl (8.6-10.3) L 02/09/23 05:55 Microbiology 02/06/23 Unknown Gram Stain - Final Sputum, Expectorated Sputum Culture - Final Scant normal paula. I & O Totals 24 Hours 02/08/23 02/09/23 02/10/23 06:59 06:59 06:59 Intake Total 1694.835 / 5623.427 1139.396 / 1313.396 85.833 / 85.833 Output Total 1190 / 1190 500 / 500 Balance 504.835 / 504.835 813.396 / 813.396 85.833 / 85.833 Cumulative 02/05/23 15:06 thru 02/09/23 08:58 Intake Total 71361.076 Output Total 5590 Balance 5214.076 RT Ventilator Mngmt (Last Documented) Ventilator Ordered Settings Ventilator Support Mode CPAP 02/08/23 08:33 Respiratory Rate 27 02/09/23 06:30 Ventilator Tidal Volume 400 02/08/23 08:15 Setting Minute Ventilation 13.8 02/08/23 08:33 Ventilator Positive Pressure 10 02/08/23 08:33 Support Setting Positive End Expiratory 5 02/08/23 08:33 Pressure Fraction of Inspired Oxygen 30 02/08/23 09:30 Machine Comment placed on CPAP 11/12 30% 02/08/23 08:15 Ventilator - PT Measurements Respiratory Rate 27 Exhaled Tidal Volume 574 Minute Ventilation 13.8 Peak Inspiratory Airway 16 Pressure Plateau Pressure 13 Respiratory Cycle Inspiratory: 1:2.8 Expiratory Ratio Inspiratory Phase Time 0.98 End-Tidal CO2 22 Static Lung Compliance 64.00 Dynamic Lung Compliance 52.18 Normal Static Lung Compliance 49.00 Patient Measurements Comment Patient extubated to 3L,SPO2 94% Coding Level of Care Code 90587 SUB INP/OBS CARE 3/50MIN Diagnoses Metabolic encephalopathy G93.41 COPD (chronic obstructive pulmonary disease) J44.9 Acute respiratory failure J96.00 Multifocal pneumonia J18.9
[2023-02-09 09:44] LABS: iSTAT Arterial Blood Gas HCO3 18 meg/L (19-24); iSTAT Arterial Blood Gas pCO2 31 mmHg (35-46); iSTAT Arterial Blood Gas pH 7.36 (7.35-7.45); iSTAT Arterial Blood Gas pO2 76 mmHg (80-95); iSTAT Carbon Dioxide 19 mmol/L (24-31); iSTAT Hematocrit 28 % (37-47); iSTAT Hemoglobin 9.5 g/dl (12.0-16.0); iSTAT Potassium 3.4 mmol/L (3.3-5.0); iSTAT Sodium 129 mmol/L (135-144)
[2023-02-09 12:28] LABS: BUN Creatinine Ratio 16.7 (10-20); Calcium 7.5 mg/dl (8.6-10.3); Creatinine Clr Calc Pharmacy 105.9 ml/min; Est GFR (African American) 123.6 ml/min; Est GFR (Non-African American) 106.6 ml/min; Magnesium 2.1 mg/dl (1.7-2.4); Potassium 3.2 mmol/L (3.5-5.1)
[2023-02-09] MEDS: OSELTAMIVIR PHOSPHATE 75 MG CAP PO SCH ×2 (12:38→19:30)
--- NOTE | 2023-02-09 12:43 | Electrocardiogram Report ---
Test Reason : Blood Pressure : / mmHG Vent. Rate : 068 BPM Atrial Rate : 068 BPM P-R Int : 138 ms QRS Dur : 086 ms QT Int : 460 ms P-R-T Axes : 040 -15 046 degrees QTc Int : 489 ms Normal sinus rhythm Prolonged QT Abnormal ECG When compared with ECG of 08-FEB-2023 12:17, QT has lengthened Confirmed by Dami Merida ([id number]) on 02/09/2023 12:42:41 PM Referred By: Jocelin Emerson Confirmed By:Dami Merida
[2023-02-09] MEDS ORDERED: POTASSIUM CHLORIDE 10 MEQ TABCR PO ONE (12:45)
--- NOTE | 2023-02-09 16:42 | Psychiatric Consultation ---
Date of Consultation February 09, 2023 Impression / Recommendations Impression 62 y/o woman with reported history of bipolar disorder and borderline personality disorder who was admitted to a nearby psychiatric facility with reported suicidal thoughts (that were denied by her boyfriend/paid caregiver) and fairly promptly decompensated with respiratory failure and septic shock. The documented and observed symptoms are not consistent with the reported psychiatric diagnoses but are entirely consistent with encephalopathy. While her encephalopathy is likely multifactorial, likely contributors have been clearly identified. She is reported to have done well with fairly low-dose haloperidol given a couple of times. Pt doesn't appear to be documented in available records as having a dementia, but the reports from [facility] seem clearly to describe memory impairment of at least 3 years' duration and to support a vascular etiology ("7 strokes"). I'm at somewhat of a loss to explain the toxicology findings. While it's plausible that diazepam was administered at [facility] since it's reported as having been a home medication, it would be unusual for a patient on diazepam also to be given oxazepam and temazepam, and especially uncommon for 3 benzodiazepines to be administered. MDMA is a common false-positive finding in patients on bupropion, but pt is not known to have been taking that. The primary cocaine metabolites, ecgonine methyl jaylyn and benzoylecgonine, have fairly brie f elimination half-lives so screens for cocaine should not remain positive beyond 4 days after use. The screens done at this facility were 3 days apart and she'd been admitted to the referring facility 5 days before the second screen done here. Very high dose could possibly account for the screen's having remained positive for an unusually long time. One possibile explanation for the unexplained MDMA and unusual combination of benzodiazepines as well as prolonged cocaine screen positivity could be pt's having had access to substances that evaded detection on her admission search or supplied by a visitor. MDMA and cocaine withdrawal would not cause mental status changes, but benzodiazepine withdrawal most certainly could. Onset of encephalopathy 5 days after admission to an inpatient setting could also fit with such an etiology. In the context of her serious medical problems it would be very difficult to tell based on objective findings such as vital signs to what degree that might be a factor. Rancho has provided surprisingly vague information about things such as substance use, symptoms, psychiatric history, and the reasons for her recent admission to [facility] considering that for the past 3 years he's been both pt's boyfriend and her paid caregiver. He should probably be viewed as not being a reliable source of information. He might well be the source of some of the substances detected in pt's system. Pt yesterday asked her nurse here to contact the police and get them to make Rancho move out, though today she wants to be in touch with him. Unless he can provide written documentation establishing that pt has granted him decision-making authority, he should probably not be permitted to visit her right now. Pt certainly does not have the capacity to make medical decisions at this time. Overall I spent a total of 119 minutes on the floor for this consultation assessment including review of chart records, review of test results, direct evaluation of the patient [id number], risk assessment, discussion with the psychiatric liaison nurse, and documentation in the electronic health record. (1) Metabolic encephalopathy: Plan * haloperidol 2.5 mg IV Q6H (scheduled) * haloperidol 5 mg IV Q8H PRN psychosis * avoid potentially deliriogenic drugs such as benzodiazepines * no need for concern about her reported home psychiatric medications (e.g. duloxetine, quetiapine, trazodone) since it's not clear that she had been taking them and they are unlikely to have noticeable benefit under the present circumstances * suggest restricting visitors in light of pt's fluctuating reports of the status her relationships * once she's eventually medically stabilized, pt will likely need to return to [facility] * strongly recommend confirming written documentation of anyone who says they can make decisions on pt's behalf. She has an estranged brother and sister who would be her "next of kin" but who may not be contactable * PT DOES NOT CURRENTLY HAVE MEDICAL DECISION-MAKING CAPACITY * PLEASE CONTACT PSYCHIATRY AT EXT. [phone] IF PATIENT WERE TO ATTEMPT LEAVE AMA SHE MAY MEET CRITERIA FOR 302 Psych History Identifying Data GURINDER GARCIA is a 62-year-old F with a history of bipolar disorder and borderline personality disorder, admitted on 02/05/2023 for AMS. Consult is by the hospitalist service for "medication management,". Chief Complaint "I get so much crap". History of Present Illness As part of a thorough review of the available medical records, I have read and and incorporated into my assessment the following note by the ED physician: "The patient is a 62-year-old female who presented to the emergency department from the [facility] for an evaluation of multiple complaints. Reportedly the patient has been having abdominal pain for the last 2 to 3 days. We did receive a phone call from the [facility] where the provider at that facility alerted us that they were sending the patient. The patient is not able to give much history. She appears agitated and confused. The patient is asking for "[facility]". When directed she does admit to having right lower quadrant pain. She denies having any black or tarry bowel movements. She denies having any chest pain or difficulty breathing. She was noted to have hypoxia by the nursing staff upon arrival to the emergency department. The patient was seen in our facility recently because of a fall." "The patient is a 62-year-old female who presented to the emergency department for an evaluation of altered mental status. The patient was sent from the [facility] where she is currently an inpatient for mental health treatment. The patient started having abdominal pain through the course of the day. Review of her records shows that she was here recently after a fall as well. The patient had abnormal lung sounds. She was found have signs of pneumonia on chest x-ray. She was treated empirically with IV antibiotics and given IV fluids. Given her altered mental status she was treated as sepsis. I discussed patient's laboratory and radiographic studies with her. I discussed her condition with the on-call [facility] hospitalist group. They have agreed to evaluate the patient in the emergency department for further management and disposition." the following note by the hospitalist: "Patient is 62 y/o F with PMH insulin dependent DM, HTN, HLD, hypothyroidism, a-fib, CAD, h/o [place], gastroparesis, fatty liver, GERD, h/o hyponatremia, bipolar, anxiety, borderline anxiety disorder, COPD, chronic back pain, OA, chronic constipation, Hepatitis C, opioid dependence, SONI, h/o PE, TIA [facility] for reported increased confusion and lethargy and abdominal pain today. History obtained from patient and staff from the [facility]. Limited history obtained from patient secondary to her current mental status. Patient thinks she is at hospital in [place] and states that she called the ambulance to bring her to hospital today because she was feeling weak and having upper abdominal pain. Patient in fact is at the [facility] and has been admitted there since 01/31/23 per staff at [facility]. States upon arrival their facility patient was poor historian. States patient was admitted there on 01/31/23 for suicidal ideations. It is reported patient was in altercation boyfriend and said she was going to stab herself. She was alert, somewhat confused to time and situation, ambulatory with unstable gait. It is reported patient was being treated for UTI with Macrobid upon admission at [facility]. Was seen at [facility] ER on 02/02/23 after a fall and discharged back. Further history obtained from staff is that patient had urine drug screen +meth, cocaine, benzos, mar ijuana. Was also being treated for UTI upon arrival there, It is reported patient was more lethargic, more confused today and c/o epigastric discomfort. " and the following note by the psychiatric liaison nurse: "Met with patient for psychiatric consult service. Upon arrival to unit and getting brief update from primary RN, patient was heard yelling out from her room with 1:1 staff sitting next to her. Patient observed awake, lying in bed with eyes partially open. Her speech is clear and organized but has difficulty answering questions/providing information, often answering "I don't know". Patient is oriented to self only. She remains consistent that Rancho is her significant other and requesting to speak with him. Able to find Rancho's phone number from [facility] demographic sheet. Patient gives verbal permission, 1:1 as witness, to speak with Rancho. Call placed to Rancho ([phone]). Rancho reports being patient's significant other as well as a paid caregiver for 3 years. Rancho is also a poor historian, often answering "I don't know". Patient's baseline is unclear but appears she has confusion d/t previous (multiple) strokes. She ambulates well with unsteady gait intermittently. Rancho denies frequent falls, however she had a fall a few days prior to being admitted to [facility]; it was unwitnessed but did not lose consciousness. [facility]o reports patient see's an outpatient psych provider, Dr. Hensley in [place]. He believes she has a rn social work, "lisa". [place]o is unable to explain any safety concerns that lead to patient requiring inpatient psych treatment. [facility]o states, "I don't know, one day she said that I should have a break and she wanted to go to behavioral health. So she went to the [facility] and they only found a place up your way". Patient does not have any other family/supports, estranged from bother and sister. Inquired about substance use, Rancho reports, "oh, I don't know. I know she has a medical marijuana card", despite UDS being positive for multiple substances. Rancho reports he could provide transportation if needed, as long as the weather is reasonable. " Pt had been seen in the [facility] ED on 02/02/2023 reporting shoulder pain after, she said, inexplicably having fallen out of bed at [facility]. Her behavior in the ED was unexceptional, but staff at the referring facility had reported she'd been "very agitated", "yelling and acting out". She returned to [facility] that day then was sent back to the ED on 02/05/2023 very confused and was admitted with worsening respiration and septic shock. She was intubated on 02/06/2023 and extubated the following day. Pt had been admitted to [facility] on 01/31/2023 with diagnoses of bipolar disorder and borderline personality disorder for reported suicidal ideation following an argument with her boyfriend/paid caregiver Rancho (who has told the psychiatric liaison nurse nothing of the sort. At admission there, a urine toxicology screen was reported as positive for metabolites of cannabis, benzodiazepine, cocaine, and methamphetamine. A toxicology screen done in the ED here on 02/02/2023 was positive for MDMA, diazepam, oxazepam, temazepam, cocaine, and cannabis. Subsequent screen here on 02/07/2023 was still positive for MDMA and benzodiazepines (quantitative results are pending), cocaine, and cannabis. When I tried to assess pt yesterday evening after she'd been extubated earlier in the day she was very sleepy, having received haloperidol shortly beforehand following multiple doses of dexmedetomidine. After I'd completed a brief note and was leaving the area I heard her yelling "that fucking bitch!" and heard a meal tray clatter to the ground. When I returned to her room with the nurse, the patient continued her litany of vulgar abuse and said "she's been doing horrible things!" When I asked her what sort of things, the patient accused the nurse of having brought her a drink she'd requested (and confirmed that was her complaint when I asked if that's what she really meant). Today pt remains very confused. She's more awake during this assessment, but no more able to answer questions in a useful manner. Her speech is fairly fluent but sparse in content. She remains oriented to "[facility]" and unable to say why she's here. She is not oriented to time. For the most part, pt ignores my actual questions and responds with vague complaints about various life issues. Past Psychiatric History Previous Psych History: unclear; seems to have had a brief admission a year ago Current Psychiatric Diagnosis: bipolar disorder, borderline personality disorder Allergies Allergy/AdvReac Type Severity Reaction Status Date / Time albuterol Allergy Unknown Unknown Verified 02/05/23 17:02 Corticosteroids Allergy Unknown Unknown Verified 02/05/23 17:02 (Glucocorticoids) escitalopram Allergy Unknown Unknown Verified 02/05/23 17:02 ketorolac Allergy Unknown Unknown Verified 02/05/23 17:02 mushroom Allergy Unknown Unknown Verified 02/05/23 17:02 NSAIDS (Non-Steroidal Allergy Unknown Unknown Verified 02/05/23 17:02 Anti-Inflamma prednisolone Allergy Unknown Unknown Verified 02/05/23 17:02 codeine AdvReac Unknown Nausea Verified 02/05/23 17:02 Fish Containing Products AdvReac Unknown edema Verified 02/05/23 17:02 prednisone AdvReac Unknown Unknown Verified 02/05/23 17:02 Home Medications Medication Instructions Recorded Confirmed Type amlodipine 10 mg tablet 10 mg PO DAILY 02/05/23 02/05/23 History atorvastatin 40 mg tablet 40 mg PO HS 02/05/23 02/05/23 History clopidogrel 75 mg tablet 75 mg PO DAILY 02/05/23 02/05/23 History diazepam 2 mg tablet 2 mg PO BID PRN bipolar 02/05/23 02/05/23 History duloxetine 30 mg capsule,delayed 30 mg PO DAILY 02/05/23 02/05/23 History release insulin aspart U-100 100 unit/mL 18 unit subcut AC 02/05/23 02/05/23 History subcutaneous cartridge (Novolog PenFill U-100 Insulin aspart) insulin aspart U-100 100 unit/mL 1 sliding scale dose subcut 02/05/23 02/05/23 History subcutaneous solution (Novolog USEASDIRECTD U-100 Insulin aspart) insulin detemir U-100 100 unit/mL 25 unit subcut DAILY 02/05/23 02/05/23 History subcutaneous solution labetalol 100 mg tablet 100 mg PO BID 02/05/23 02/05/23 History levothyroxine 100 mcg tablet 100 mcg PO DAILY 02/05/23 02/05/23 History levothyroxine 25 mcg tablet 25 mcg PO DAILY 02/05/23 02/05/23 History lisinopril 10 mg tablet 10 mg PO DAILY 02/05/23 02/05/23 History metformin 500 mg tablet 500 mg PO BID 02/05/23 02/05/23 History nitrofurantoin macrocrystal 100 mg 100 mg PO BID 02/05/23 02/05/23 History capsule pantoprazole 40 mg tablet,delayed 40 mg PO DAILY 02/05/23 02/05/23 History release quetiapine 25 mg tablet 25 mg PO BID 02/05/23 02/05/23 History trazodone 100 mg tablet 100 mg PO HS PRN Insomnia 02/05/23 02/05/23 History trazodone 50 mg tablet 25 mg PO HS PRN Insomnia 02/05/23 02/05/23 History Patient History Medical History (Updated 02/06/23 @ 16:01 by Jenny Sales MD, [facility]) COPD (chronic obstructive pulmonary disease) TIA (transient ischemic attack) SONI (obstructive sleep apnea) CAD (coronary artery disease) Hx of insulin dependent diabetes mellitus Borderline personality disorder Bipolar disorder Chronic GERD Hypertension Hypothyroid CVA (cerebral vascular accident) High cholesterol Social History Smoking Status: Unknown if ever smoked Hx Alcohol Use: No Preferred Language: Yi Communication Ability: Impaired Camp [employer] Required: No Beliefs That Will Affect Care: None Current Living Situation: Spouse Feels Safe at Home: Yes Physical Exam Vital Signs (Past 24 Hours): Last Vital Signs Temp 36.8 C 02/09/23 12:00 Pulse 115 H 02/09/23 14:00 Resp 22 02/09/23 14:00 BP 132/79 02/09/23 14:00 Pulse Ox 93 02/09/23 14:00 O2 Del Method Nasal Cannula 02/09/23 14:00 O2 Flow Rate 2 02/09/23 14:00 FiO2 30 02/08/23 09:30 Results & Data (PSY) Medications Administered Amlodipine Besylate (Amlodipine Besylate 5 Mg Tab) [facility] Stop: 03/10/23 14:59 Last Admin: 02/09/23 08:33 Dose: 10 mg Documented By: Admin: 02/08/23 15:27 Dose: 10 mg Documented By: CASIE Atorvastatin Calcium (Atorvastatin 40 Mg Tab) 40 mg PO [facility] Stop: 03/07/23 23:06 Last Admin: 02/08/23 20:18 Dose: 40 mg Documented By: Admin: 02/07/23 22:05 Dose: 40 mg Documented By: Admin: 02/06/23 20:22 Dose: 40 mg Documented By: Admin: 02/06/23 00:09 Dose: 40 mg Documented By: ANNA Clopidogrel Bisulfate (Clopidogrel Bisulfate 75 Mg Tab) 75 mg PO DAILY [facility] Stop: 03/08/23 08:59 Last Admin: 02/09/23 08:33 Dose: 75 mg Documented By: Admin: 02/08/23 08:24 Dose: 75 mg Documented By: Admin: 02/07/23 13:15 Dose: 75 mg Documented By: Admin: 02/06/23 09:51 Dose: Not Given Documented By: RHONDA Duloxetine HCl (Duloxetine Hcl 30 Mg Cap) 30 mg PO DAILY [facility] Stop: 03/08/23 08:59 Last Admin: 02/09/23 08:33 Dose: 30 mg Documented By: Admin: 02/06/23 09:51 Dose: Not Given Documented By: RHONDA Enoxaparin Sodium (Enoxaparin Inj 40 Mg/0.4 Ml Syr) 40 mg SQ Q24H [facility] Stop: 03/08/23 05:59 Last Admin: 02/09/23 05:58 Dose: 40 mg Documented By: Admin: 02/07/23 05:55 Dose: 40 mg Documented By: Admin: 02/06/23 05:49 Dose: 40 mg Documented By: DAVID Insulin Aspart (Insulin Aspart Per Unit Charge) 0 units SC [facility]; Protocol Stop: 03/11/23 11:29 Last Admin: 02/09/23 13:04 Dose: 5 units Documented By: CASIE Co-signed By: JULIETTE Oseltamivir Phosphate (Oseltamivir Phosphate 75 Mg Cap) 75 mg PO BID [facility] Stop: 02/10/23 23:59 Last Admin: 02/09/23 12:38 Dose: 75 mg Documented By: CASIE Quetiapine Fumarate (Quetiapine Fumarate 25 Mg Tablet) 25 mg PO BID [facility] Stop: 03/07/23 23:06 Last Admin: 02/09/23 08:33 Dose: 25 mg Documented By: Admin: 02/08/23 20:19 Dose: 25 mg Documented By: Admin: 02/06/23 20:22 Dose: 25 mg Documented By: Admin: 02/06/23 09:51 Dose: Not Given Documented By: Admin: 02/06/23 00:10 Dose: 25 mg Documented By: ANNA Coding Level of Care Code 23484 U Intl Hosp Care Lvl 3 Diagnoses Metabolic encephalopathy G93.41 Time Spent (min) 119
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
[2023-02-09] MEDS ORDERED: OLANZapine 10 MG/2.1 ML SDV IM ONE (17:07)
[2023-02-09] MEDS ORDERED: HALOPERIDOL LACTATE 5 MG/ML 1 ML VIAL IV PRN (18:13)
[2023-02-09] MEDS ORDERED: HALOPERIDOL LACTATE 5 MG/ML 1 ML VIAL IV SCH (18:45)
[2023-02-09] MEDS ORDERED: HALOPERIDOL LACTATE 5 MG/ML 1 ML VIAL IM PRN (18:51)
[2023-02-09] MEDS: ATORVASTATIN 40 MG TAB PO SCH (19:30)
[2023-02-09] MEDS: METOPROLOL TARTRATE 25 MG TAB PO SCH (20:41)
[2023-02-09] MEDS ORDERED: diazePAM 2 MG TABLET PO ONE (21:19)
[2023-02-09 21:55] LABS: Anion Gap 7 (3-11); BUN Creatinine Ratio 19.2 (10-20); Blood Urea Nitrogen 10 mg/dl (6-23); Calcium 7.4 mg/dl (8.6-10.3); Carbon Dioxide 24 mmol/L (21-32); Chloride 101 mmol/L (98-107); Creatinine Clr Calc Pharmacy 97.7 ml/min; Est GFR (African American) 120.4 ml/min; Est GFR (Non-African American) 103.9 ml/min; Glucose 138 mg/dl (70-99(Fasting)); Sodium 132 mmol/L (136-145)
[2023-02-09 22:01] LABS: Troponin I High Sensitivity 11.7 pg/ml (0-14)
[2023-02-10] MEDS ORDERED: HALOPERIDOL LACTATE 5 MG/ML 1 ML VIAL IM SCH ×2
[2023-02-10] MEDS ORDERED: LORazepam 0.5 MG in SYRINGE 0.25 ML IV STA (00:21)
--- NOTE | 2023-02-10 03:12 | Communication Note ---
Date of Service: February 10, 2023 Notified by nursing that pt agitated and frequently yelling, violent with staff at times. Pt cumulatively ordered and received Haldol 7.5mg by midnight, one dose of po Valium and one dose of IV Ativan 0.5mg Psychiatry's recommendation of avoiding benzos are noted. Also concern for QT prolongation with escalating doses of Haldol QTC of 489 noted on EKG from 02/08/22. Restraints also ordered for pt. Repeat EKG ordered overnight for pt's complaint of chest pain. Trop within normal limits, consider trending. EKG with qtc of 470 at that time. Orders placed to continue with psych's recommendations of IV Haldol 5mg q8h PRN for agitation and IV Haldol 2.5mg q6h scheduled.
[2023-02-10] MEDS: ENOXAPARIN INJ 40 MG/0.4 ML SYR SQ SCH (05:51)
[2023-02-10] MEDS: HALOPERIDOL LACTATE 5 MG/ML 1 ML VIAL IM SCH ×4 (05:51→22:57)
[2023-02-10] MEDS: LEVOTHYROXINE SODIUM 125 MCG TABLET PO SCH (05:51)
[2023-02-10 08:45] LABS: Hematocrit (blood only) 28.2 % (37.0-47.0); Hemoglobin 9.7 g/dl (12.0-16.0); Mean Corpuscular Hemoglobin 24.6 pg (25.0-34.0); Mean Corpuscular Hgb Conc 34.4 g/dL (32.0-36.0); Mean Corpuscular Volume 71.4 fL (80.0-100.0); Mean Platelet Volume 8.8 fL (9.4-12.4); Nucleated RBC # (auto) 0.02 K/uL (0.00-0.12); Nucleated RBC % (auto) 0.2 %; Platelet Count 332 K/uL (130-400); RDW Coefficient of Variation 11.9 % (11.5-14.5); RDW Standard Deviation 30.5 fL (36.4-46.3); Red Blood Count 3.95 M/uL (4.20-5.40); White Blood Count 12.56 K/ul (4.8-10.8)
[2023-02-10] MEDS ORDERED: LANTUS PER UNIT CHARGE SC SCH (09:00)
[2023-02-10 09:05] LABS: BUN Creatinine Ratio 18.4 (10-20); Calcium 7.5 mg/dl (8.6-10.3); Creatinine Clr Calc Pharmacy 115.3 ml/min; Est GFR (African American) 133.4 ml/min; Est GFR (Non-African American) 115.1 ml/min; Magnesium 1.5 mg/dl (1.7-2.4); Phosphorus 2.1 mg/dl (2.5-4.9); Potassium 3.2 mmol/L (3.5-5.1)
[2023-02-10] MEDS: INSULIN ASPART PER UNIT CHARGE SC SCH ×4 (09:05→20:50)
[2023-02-10] MEDS: DULoxetine HCL 30 MG CAP PO SCH (09:06)
[2023-02-10] MEDS: OSELTAMIVIR PHOSPHATE 75 MG CAP PO SCH ×2 (09:06→20:10)
[2023-02-10] MEDS: amLODIPine BESYLATE 5 MG TAB PO SCH (09:06)
[2023-02-10] MEDS: CLOPIDOGREL BISULFATE 75 MG TAB PO SCH (09:06)
[2023-02-10] MEDS: METOPROLOL TARTRATE 25 MG TAB PO SCH (11:28)
--- NOTE | 2023-02-10 14:23 | Pharmacy Report ---
Pharmacy Glycemic Short Note 2 - Date of Service February 10, 2023 - Glycemic Short BSG Results (Last 24 hours): 02/09/23 02/09/23 02/09/23 16:29 20:27 21:17 Glucose 138 H POC Glucose 169 H 175 H 02/10/23 02/10/23 02/10/23 07:56 08:12 11:33 Glucose 143 H POC Glucose 86 273 H OUTPATIENT ANTIDIABETIC REGIMEN: * Levemir 25 units SQ Daily * NovoLog 18 units with meals + SSI * Metformin 500mg PO BID HbA1c: 11.5% (02/06/23) ASSESSMENT: 02/09/23: * Padma received 42 units of insulin yesterday (25 units of basal) * Fasting BSG below goal range, decrease basal insulin * Lunchtime BSG significantly increased from breakfast. Tighten carbohydrate ratio * She remains on Tamiflu and doxycycline. 02/10/23 * Ongoing hydrocortisone stopped. Diet ordered yesterday with some CHO intake. BSG's yesterday below goal for ICU patient, but AM fasting above goal. * Will very slightly increase Lantus, up to total daily home basal dose. Hesitant to be more aggressive with steroids stopping. * Will keep Novolog at current parameter for now 2nd elevated AM BSG. However, will loosen at lunch as steroid effects wear off. 02/08/23: * BSGs reasonably controlled yesterday with 62 units of insulin (45 units of basal and 17 units of prandial/correctional bolus) * Patient receiving Peptamen yesterday, covered with Novolog * Extubated this morning and OGT removed, patient agitated and confused. Precedex initiated. * Patient already received 20 units of basal insulin this morning. Will reduce ongoing basal given uncertainty in PO intake. NPO at this time. * Continues on hydrocortisone 50 mg IV q12h 02/07/23: * 62-year-old female critically ill, metabolic encephalopathy, non-anion gap metabolic acidosis. Transferred to the ICU for respiratory distress. * Past medical history: uncontrolled T2DM, HTN, dyslipidemia, borderline anxiety disorder, bipolar disorder, hep C opioid dependence, SONI, history of PE. * Insulin drip running at 2.5units/hr - received 39 units of Lantus yesterday while on insulin drip. * Will give Lantus now to overlap with drip and transition to SQ insulin * Remains on hydrocortisone 50mg IV Q8H, Tamiflu, doxycycline. Just started on Peptamen tube feeds, Peptamen 1.5 jaci = 184 g CHO/L, which provides the flowin mL/hr = 15 g CHO q4h 30 mL/hr = 22 g CHO q4h 40 mL/hr = 29 g CHO q4h 50 mL/hr = 37 g CHO q4h 60 mL/hr = 44 g CHO q4h 70 mL/hr = 52 g CHO q4h PLAN FOR INPATIENT GLYCEMIC CONTROL: * Hold outpatient diabetes medications * Basal insulin - decrease * Lantus 15 units SC Daily * Bolus insulin - tighten * NovoLog per scale Q6H * Goal Range: Low 110 mg/dL - High 140 mg/dL * Correction Factor: 35 mg/dL/unit * Nutritional / Prandial insulin per carb ratio of 1 unit per 9 grams CHO consumed
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
[2023-02-10] MEDS: ATORVASTATIN 40 MG TAB PO SCH (20:09)
[2023-02-10] MEDS: LABETALOL HCL 100 MG TAB PO SCH (20:10)
[2023-02-10] MEDS ORDERED: POTASSIUM CHLORIDE CRTAB 20 MEQ TABCR PO STA (20:20)
[2023-02-10] MEDS: MAGNESIUM SULFATE / D5W 1 GM/100 ML BAG IV SCH ×2 (20:49→22:34)
[2023-02-10] MEDS: DOXYCYCLINE HYCLATE 100 MG CAP PO SCH (20:49)
[2023-02-10] MEDS: POT PHOSPHATE MONOBASIC W/ SOD TAB PO SCH (20:49)
[2023-02-11] MEDS: MAGNESIUM SULFATE / D5W 1 GM/100 ML BAG IV SCH ×2 (00:20→02:18)
[2023-02-11] MEDS: HALOPERIDOL LACTATE 5 MG/ML 1 ML VIAL IM PRN (05:18)
[2023-02-11] MEDS: HALOPERIDOL LACTATE 5 MG/ML 1 ML VIAL IM SCH ×2 (05:23→06:23)
[2023-02-11 06:15] LABS: Hematocrit (blood only) 31.7 % (37.0-47.0); Hemoglobin 10.5 g/dl (12.0-16.0); Mean Corpuscular Hemoglobin 24.6 pg (25.0-34.0); Mean Corpuscular Hgb Conc 33.1 g/dL (32.0-36.0); Mean Corpuscular Volume 74.4 fL (80.0-100.0); Platelet Count 386 K/uL (130-400); RDW Standard Deviation 32.1 fL (36.4-46.3); Red Blood Count 4.26 M/uL (4.20-5.40); White Blood Count 10.55 K/ul (4.8-10.8)
[2023-02-11] MEDS: ENOXAPARIN INJ 40 MG/0.4 ML SYR SQ SCH (06:18)
[2023-02-11] MEDS: LEVOTHYROXINE SODIUM 125 MCG TABLET PO SCH (06:18)
[2023-02-11 06:31] LABS: BUN Creatinine Ratio 16.7 (10-20); Est GFR (African American) 118.9 ml/min; Est GFR (Non-African American) 102.6 ml/min; Magnesium 2.3 mg/dl (1.7-2.4); Phosphorus 2.3 mg/dl (2.5-4.9); Potassium 3.5 mmol/L (3.5-5.1)
[2023-02-11] MEDS: amLODIPine BESYLATE 5 MG TAB PO SCH (08:35)
[2023-02-11] MEDS: INSULIN ASPART PER UNIT CHARGE SC SCH ×4 (08:35→20:22)
[2023-02-11] MEDS: DOXYCYCLINE HYCLATE 100 MG CAP PO SCH ×2 (08:36→20:24)
[2023-02-11] MEDS: POT PHOSPHATE MONOBASIC W/ SOD TAB PO SCH ×4 (08:39→20:24)
[2023-02-11] MEDS: DULoxetine HCL 30 MG CAP PO SCH (08:39)
[2023-02-11] MEDS: LABETALOL HCL 100 MG TAB PO SCH ×2 (08:40→20:24)
[2023-02-11] MEDS: CLOPIDOGREL BISULFATE 75 MG TAB PO SCH (08:40)
[2023-02-11] MEDS ORDERED: LANTUS PER UNIT CHARGE SC SCH (09:00)
[2023-02-11] MEDS: lisinopril 10 MG TAB PO SCH (09:21)
[2023-02-11 13:12] LABS: Uric Acid, Random Urine 96 mg/dL
--- NOTE | 2023-02-11 13:23 | Pharmacy Report ---
Pharmacy Glycemic Short Note 2 - Date of Service February 11, 2023 - Glycemic Short BSG Results (Last 24 hours): 02/10/23 02/10/23 02/11/23 16:17 20:22 05:37 Glucose 246 H POC Glucose 117 H 178 H 02/11/23 02/11/23 07:20 11:28 Glucose POC Glucose 240 H 295 H OUTPATIENT ANTIDIABETIC REGIMEN: * Levemir 25 units SQ Daily * NovoLog 18 units with meals + SSI * Metformin 500mg PO BID HbA1c: 11.5% (02/06/23) ASSESSMENT: 02/11/23: * Padma received 36 units units of insulin yesterday (15 were basal) * Fasting BSG elevated this AM, basal insulin likely decreased too much yesterday, split the difference * Tends to be high at lunch, consider tighter carbohydrate ratio with breakfast. Carb ratio tightened further today. 02/09/23 * Padma received 42 units of insulin yesterday (25 units of basal) * Fasting BSG below goal range, decrease basal insulin * Lunchtime BSG significantly increased from breakfast. Tighten carbohydrate ratio * She remains on Tamiflu and doxycycline. 02/10/23 * Ongoing hydrocortisone stopped. Diet ordered yesterday with some CHO intake. BSG's yesterday below goal for ICU patient, but AM fasting above goal. * Will very slightly increase Lantus, up to total daily home basal dose. Hesitant to be more aggressive with steroids stopping. * Will keep Novolog at current parameter for now 2nd elevated AM BSG. However, will loosen at lunch as steroid effects wear off. 02/08/23: * BSGs reasonably controlled yesterday with 62 units of insulin (45 units of basal and 17 units of prandial/correctional bolus) * Patient receiving Peptamen yesterday, covered with Novolog * Extubated this morning and OGT removed, patient agitated and confused. Precedex initiated. * Patient already received 20 units of basal insulin this morning. Will reduce ongoing basal given uncertainty in PO intake. NPO at this time. * Continues on hydrocortisone 50 mg IV q12h 02/07/23: * 62-year-old female critically ill, metabolic encephalopathy, non-anion gap metabolic acidosis. Transferred to the ICU for respiratory distress. * Past medical history: uncontrolled T2DM, HTN, dyslipidemia, borderline anxiety disorder, bipolar disorder, hep C opioid dependence, SONI, history of PE. * Insulin drip running at 2.5units/hr - received 39 units of Lantus yesterday while on insulin drip. * Will give Lantus now to overlap with drip and transition to SQ insulin * Remains on hydrocortisone 50mg IV Q8H, Tamiflu, doxycycline. Just started on Peptamen tube feeds, Peptamen 1.5 jaic = 184 g CHO/L, which provides the flowin mL/hr = 15 g CHO q4h 30 mL/hr = 22 g CHO q4h 40 mL/hr = 29 g CHO q4h 50 mL/hr = 37 g CHO q4h 60 mL/hr = 44 g CHO q4h 70 mL/hr = 52 g CHO q4h PLAN FOR INPATIENT GLYCEMIC CONTROL: * Hold outpatient diabetes medications * Basal insulin - increase * Lantus 20 units SC Daily * Bolus insulin - tighten * NovoLog per scale Q6H * Goal Range: Low 110 mg/dL - High 140 mg/dL * Correction Factor: 35 mg/dL/unit * Nutritional / Prandial insulin per carb ratio of 1 unit per 7 grams CHO consumed
--- NOTE | 2023-02-11 13:36 | Electrocardiogram Report ---
Test Reason : Blood Pressure : / mmHG Vent. Rate : 104 BPM Atrial Rate : 104 BPM P-R Int : 136 ms QRS Dur : 078 ms QT Int : 358 ms P-R-T Axes : 065 -33 049 degrees QTc Int : 470 ms Sinus tachycardia Left axis deviation Septal infarct , age undetermined Abnormal ECG When compared with ECG of 08-FEB-2023 22:57, Vent. rate has increased BY 36 BPM Confirmed by Dami Merida ([id number]) on 02/11/2023 1:36:36 PM Referred By: Jocelin Emerson Confirmed By:Dami Merida
--- NOTE | 2023-02-11 14:42 | Electrocardiogram Report ---
Test Reason : Blood Pressure : / mmHG Vent. Rate : 088 BPM Atrial Rate : 088 BPM P-R Int : 128 ms QRS Dur : 078 ms QT Int : 404 ms P-R-T Axes : 010 -36 032 degrees QTc Int : 488 ms Normal sinus rhythm Left axis deviation Septal infarct (cited on or before 09-FEB-2023) Abnormal ECG When compared with ECG of 09-FEB-2023 21:02, (unconfirmed) No significant change was found Confirmed by Dami Merida ([id number]) on 02/11/2023 2:42:10 PM Referred By: Jocelin Emerson Confirmed By:Dami Merida
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
[2023-02-11] MEDS: ATORVASTATIN 40 MG TAB PO SCH (20:25)
[2023-02-11] MEDS: QUEtiapine FUMARATE 25 MG TABLET PO SCH (20:25)
[2023-02-12] MEDS: HALOPERIDOL LACTATE 5 MG/ML 1 ML VIAL IM PRN (05:52)
[2023-02-12] MEDS: ENOXAPARIN INJ 40 MG/0.4 ML SYR SQ SCH (05:55)
[2023-02-12] MEDS: LEVOTHYROXINE SODIUM 125 MCG TABLET PO SCH (05:55)
[2023-02-12] MEDS: QUEtiapine FUMARATE 25 MG TABLET PO SCH (08:09)
[2023-02-12] MEDS: DOXYCYCLINE HYCLATE 100 MG CAP PO SCH (08:09)
[2023-02-12] MEDS: LABETALOL HCL 100 MG TAB PO SCH (08:09)
[2023-02-12] MEDS: DULoxetine HCL 30 MG CAP PO SCH (08:09)
[2023-02-12] MEDS: POT PHOSPHATE MONOBASIC W/ SOD TAB PO SCH (08:09)
[2023-02-12] MEDS: amLODIPine BESYLATE 5 MG TAB PO SCH (08:10)
[2023-02-12] MEDS: lisinopril 10 MG TAB PO SCH (08:10)
[2023-02-12] MEDS: CLOPIDOGREL BISULFATE 75 MG TAB PO SCH (08:10)
[2023-02-12] MEDS: INSULIN ASPART PER UNIT CHARGE SC SCH ×2 (08:11→12:11)
[2023-02-12] MEDS ORDERED: LANTUS PER UNIT CHARGE SC SCH (09:00)
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
[2023-02-12 15:51] LABS: 7-Aminoclonaz, Confirm NEGATIVE ng/mL (<25); Cocaine, Urine 264 ng/mL (<100); Hydro-Alp Ur, GC/MS NEGATIVE ng/mL (<25); Hydroxyethylflurazepam, Conf NEGATIVE ng/mL (<50); Hydroxymidazolam Ur, GC/MS NEGATIVE ng/mL (<50); Hydroxytriazolam NEGATIVE ng/mL (<50); Lorazepam, Ur GC/MS NEGATIVE ng/mL (<50); MDA negative; MDEA negative; MDMA (Ecstasy) Urine, Confirm negative; Marijuana Quant, GCMS Urine 105 ng/mL (<5); Nordiazepam, Confirm 265 ng/mL (<50); Oxazepam Ur, GC/MS 1790 ng/mL (<50); Temazepam, Confirm >2000 ng/mL (<50)
== END 2023-02-12 12:28 | disposition home or self-care (01) | DRG 871 ==
LOC: ED 15:16 → SUATTDRO 18:51 → EDINP 18:51 → 1E 23:08 → 2S 02-09 15:30